=== PATIENT | female | born 1965 | race African-American/Black ===

== ENCOUNTER 2023-04-04 14:12 | Outpatient (OUT) | payer MEDICARE, SELFPAY ==
--- NOTE | 2023-04-04 | XR_ITS ---
The [address] [address] Patient Name: SIMONA DE SANTIAGO MRN: [id number] date: 1965 Sex: F Assigned Patient Location: Current Patient Location: Accession/Order Number: [id number] Exam Date: 04/04/2023 14:28 Report Date: 04/05/2023 07:25 At the request of: TONE CARABALLO Procedure: XR foot JANINA min 3V EXAMINATION: XR foot JANINA min 3V, XR ankle JANINA min 3V HISTORY: BILATERAL FOOT PAIN COMPARISON: No relevant comparison available. FINDINGS: RIGHT FINDINGS: BONES: No significant arthropathy or acute abnormality. SOFT TISSUES: No visible soft tissue swelling. OTHER: Negative. LEFT FINDINGS: BONES: Small triangular-shaped protrusion/cortical thickening/periosteal reaction along lateral margin of middistal tibial diaphysis. SOFT TISSUES: Small ossification within the soft tissues adjacent to the cortical irregularity the distal tibia; likely heterotopic bone formation from remote injury. OTHER: Negative. XR/XR foot JANINA min 3V IMPRESSION: RIGHT CONCLUSION: 1. 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 No acute bone abnormality or bone lesion. LEFT CONCLUSION: 1. Nonspecific focal area of cortical thickening/irregularity involving the middistal tibial diaphysis. Adjacent soft tissue calcification suggest the combination may be sequela of remote injury, however, a neoplastic process involving the distal tibia needs to be excluded. Consider follow-up x-ray in 3-6 months to document stability. Alternatively, MRI of this area could be performed to evaluate for soft tissue component. 2. Mild degenerative changes of the foot and ankle. No acute findings. Electronically authenticated by: JANET THORPE Date: 04/05/2023 07:25
--- NOTE | 2023-04-04 | XR_ITS ---
The [address] [address] Patient Name: SIMONA DE SANTIAGO MRN: [id number] date: 1965 Sex: F Assigned Patient Location: Current Patient Location: Accession/Order Number: [id number] Exam Date: 04/04/2023 14:28 Report Date: 04/05/2023 07:25 At the request of: TONE CARABALLO Procedure: XR ankle JANINA min 3V EXAMINATION: XR foot JANINA min 3V, XR ankle JANINA min 3V HISTORY: BILATERAL FOOT PAIN COMPARISON: No relevant comparison available. FINDINGS: RIGHT FINDINGS: BONES: No significant arthropathy or acute abnormality. SOFT TISSUES: No visible soft tissue swelling. OTHER: Negative. LEFT FINDINGS: BONES: Small triangular-shaped protrusion/cortical thickening/periosteal reaction along lateral margin of middistal tibial diaphysis. SOFT TISSUES: Small ossification within the soft tissues adjacent to the cortical irregularity the distal tibia; likely heterotopic bone formation from remote injury. OTHER: Negative. XR/XR ankle JANINA min 3V IMPRESSION: RIGHT CONCLUSION: 1. 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 No acute bone abnormality or bone lesion. LEFT CONCLUSION: 1. Nonspecific focal area of cortical thickening/irregularity involving the middistal tibial diaphysis. Adjacent soft tissue calcification suggest the combination may be sequela of remote injury, however, a neoplastic process involving the distal tibia needs to be excluded. Consider follow-up x-ray in 3-6 months to document stability. Alternatively, MRI of this area could be performed to evaluate for soft tissue component. 2. Mild degenerative changes of the foot and ankle. No acute findings. Electronically authenticated by: JANET THORPE Date: 04/05/2023 07:25
== END 2023-04-04 14:13 | disposition home or self-care (01) ==
PROVIDERS: Visit Provider Podiatrist Foot & Ankle Surgery
DX: M25.571 Pain in right ankle and joints of right foot (principal); M25.572 Pain in left ankle and joints of left foot; M79.671 Pain in right foot; M79.672 Pain in left foot; M19.071 Primary osteoarthritis, right ankle and foot
CPT/HCPCS: 73610; 73630

== ENCOUNTER 2023-06-13 08:41 | Outpatient (OUT) | payer MEDICARE, MEDICAID, SELFPAY ==
--- NOTE | 2023-06-13 08:55 | ECG_ITS ---
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
--- OUTSIDE RECORDS SUMMARY | 2023-06-13 09:04 | XMS_ITS | CCD ---
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 Care Hydro Sprayer Operator Name Role Phone Virgilio Carrera Unavailable Jaxson ([facility]), ADRIANNE Pizano Attending Provider [phone] Plank, DO Maged Primary Care Provider Nicholas Luu Unavailable MD Nicholas Luu Attending Provider [phone] Cory, DO Maged Primary Care Provider Cory, DO Maged Primary Care Provider MD Nicholas Luu Attending Provider Tutheresa, DO Saul Herrera Emergency Provider [phone] Plank, DO Maged Primary Care Provider [phone] MD Zeferino Allen Attending Provider [phone] Jaxson ([facility]), ADRIANNE Pizano Attending Provider Cory, DO Maged Primary Care Provider [phone] MD Nicholas Luu Attending Provider AVRIL RENDON Attending Unavailable Plank, Maged Primary Care Unavailable Saul Esparza Attending Unavailable Saul Esparza Admitting Unavailable Nicholas Luu Attending Unavaila ble Nicholas Luu Admitting Unavaila ble Plank, Maged Primary Care Unavailable Plank, Maged Primary Care Unavailable Antwan Delacruz Attending Unavailable Antwan Delacruz Admitting Unavailable Plank, Maged Primary Care Unavailable Rice ([facility]), Tamika Pizano Attending Unavailabl e Rice ([facility]), Tamika Pizano Admitting Unavailabl e Plank, Maged Primary Care Unavailable Antwan Delacruz Attending Unavailable Antwan Delacruz Admitting Unavailable Maged Ray Primary Care Unavailable Asaad, Imad Attending Unavailable Asacait Imad Admitting Unavailable Allergies Allergy Classification Reported Allergen(s) Allergy Type Date of Onset Reaction(s) Facility (8 sources) cyclobenzaprine Drug Allergy 3 [facility] (8 sources) Naproxen Drug Allergy 3 [facility] (4 sources) pineapple; Translations: [pineapple] Allergy to substance 3 Anaphylaxis [facility] (1 source) cyclobenzaprine Drug Allergy 3 [facility]ository (1 source) Naproxen Drug Allergy 3 [facility] Medications Current Medications Medication Drug Class(es) Dates Sig (Normalized) Sig (Original) [id number] 200 actuat albuterol 0.09 mg/actuat metered dose inhaler (4 sources) beta2-Adrenergic Agonist take 1 puff(s) by inhalation every four hours as needed Proventil HFA 108 (90 Base) MCG/ACT 1 puff as needed Inhalation every 4 hrs for 30 day(s) Active atorvastatin 40 mg oral tablet (8 sources) HMG-CoA Reductase Inhibitor Start: 08-20-2022 take 40 mg by mouth once daily Atorvastatin Active 40 MG PO Daily August 20, 2022 12:00am 120 actuat budesonide 0.08 mg/actuat / formoterol fumarate 0.0045 mg/actuat metered dose inhaler (4 sources) Corticosteroid, beta2-Adrenergic Agonist take 2 puff(s) by inhalation once daily Symbicort 80-4.5 MCG/ACT 2 puffs Inhalation Once a day for 30 day(s) Active 0.5 ML dulaglutide 9 MG/ML Auto-Injector [Trulicity] (4 sources) GLP-1 Receptor Agonist inject 4.5 mg by subcutaneous injection every week Trulicity 4.5 MG/0.5ML 4.5 mg Subcutaneous weekly for 30 day(s) Active Dulaglutide (Trulicity) 4.5 mg/0.5 mL Pen Injector (4 sources) Start: 08-20-2022 Dulaglutide (Trulicity) 4.5 mg/0.5 mL Pen Injector Active 4.5 MG SUBCUT every week August 20, 2022 12:00am Incruse Ellipta 62.5 MCG/INH (1 source) take 1 puff(s) by inhalation once daily Incruse Ellipta 62.5 MCG/INH 1 puff Inhalation Once a day for 30 day(s) Active Insulin Degludec (Tresiba Flextouch U-100) 100 unit/mL (3 mL) Insulin Pen (4 sources) Start: 08-20-2022 Insulin Degludec (Tresiba Flextouch U-100) 100 unit/mL (3 mL) Insulin Pen Active 50 UNIT SUBCUT Daily at bedtime August 20, 2022 12:00am losartan potassium 100 mg oral tablet (8 sources) Angiotensin 2 Receptor Darshan Start: 08-20-2022 take 100 mg by mouth once daily Losartan Active 100 MG PO Daily August 20, 2022 12:00am metFORMIN hydrochloride 1000 mg oral tablet (4 sources) Biguanide Start: 08-20-2022 take 1000 mg by mouth twice daily Metformin Active 1000 MG PO Twice daily August 20, 2022 12:00am polyethylene glycol 3350 [id number] mg / potassium chloride 2970 mg / sodium bicarbonate 6740 mg / sodium chloride 5860 mg / sodium sulfate 19693 mg powder for oral solution (1 source) Osmotic Laxative Start: 09-06-2022 take 236 g by mouth once daily Golytely 236 GM as directed Orally once daily for 1 days Aug, Active Vitamin (4 sources) Vitamin Active Umeclidinium (6 sources) Anticholinergic Start: 10-10-2022 take 62.5 ug by inhalation once daily Umeclidinium (Incruse Ellipta) 62.5 mcg/actuation Blister With Device Active 1 INH INHALATION Daily October 10, 2022 12:00am take 1 puff(s) by inhalation onc e daily Incruse Ellipta 62.5 MCG/INH 1 puff Inhalation Once a day for 30 day(s) Active Completed/Discontinued Medications Medication Drug Class(es) Dates Sig (Normalized) Sig (Original) ibuprofen 800 mg oral tablet (4 sources) Nonsteroidal Anti-inflammatory Drug Start: 08-20-2022 End: 10-10-2022 take 800 mg by mouth three times daily Ibuprofen Discontinued 800 MG PO Three times daily August 20, 2022 12:00am October 10, 2022 8:31am Problems Problem Classification Problem Date Documented Date Episodic/Chronic Asthma (5 sources) Uncomplicated moderate persistent asthma; Translations: [Moderate persistent asthma, uncomplicated] Onset: 08-12-2021 Resolved: 08-12-2021 Chronic Diabetes mellitus without complication (5 sources) Type 2 diabetes mellitus without complication; Translations: [Type 2 diabetes mellitus without complications] Onset: 08-12-2021 Resolved: 08-12-2021 Chronic Disorders of lipid metabolism (6 sources) Mixed hyperlipidemia; Translations: [Mixed hyperlipidemia] Onset: 08-12-2021 Resolved: 09-06-2021 Chronic Essential hypertension (6 sources) Essential hypertension; Translations: [Essential (primary) hypertension] Onset: 08-12-2021 Resolved: 09-06-2021 Chronic Other connective tissue disease (1 source) Pain in right foot; Translations: [Pain in right foot] Onset: 06-12-2023 Episodic Residual codes; unclassified (2 sources) Obstructive sleep apnea syndrome; Translations: [Obstructive sleep apnea (adult) (pediatric)] Chronic Residual codes; unclassified (2 sources) Obstructive sleep apnea (adult) (pediatric) Chronic Residual codes; unclassified (1 source) Obstructive sleep apnea (adult)(pediatric); Translations: [Obstructive sleep apnea (adult) (pediatric)] Onset: 12-07-2022 Chronic Sprains and strains (4 sources) Sprain of knee; Translations: [Sprain of unspecified site of unspecified knee, initial encounter] 08-20-2022 Episodic Unclassified (1 source) Strain of muscle(s) and tendon(s) of peroneal muscle group at lower leg level, right leg, initial encounter; Translations: [Strain of muscle(s) and tendon(s) of peroneal muscle group at lower leg level, right leg, initial encounter] Onset: 04-17-2023 Unclassified (1 source) Encounter for screening mammogram for malignant neoplasm of breast; Translations: [Encounter for screening mammogram for malignant neoplasm of breast] Onset: 10-21-2022 Unclassified (1 source) Encounter for screening for malignant neoplasm of colon; Translations: [Encounter for screening for malignant neoplasm of colon] Onset: 10-10-2022 Unclassified (1 source) Pain in right knee; Translations: [Pain in right knee] Onset: 08-20-2022 Results Test Name Value Interpretation Reference Range Facility XR pre/post mri xrayon 04-16 XR pre/post mri xray [facility] [address] [place] [address] MRI Report Signed Patient: Lisa Leblanc MR#: [id number] : 1965 Acct:[id number] Age/Sex: 58 / F ADM Date: 04/17/23 Loc: MR Room: Type: REG CLI Attending Dr: Antwan Delacruz DPM, MS Copies to: Antwan Delacruz DPM, MS Ordering Provider: Antwan Delacruz DPM, MS Date of Service: 04/17/23 MR/MR ankle RT wo con: PERONEAL TEAR, PTTD ([id number]) XR/XR pre/post mri xray: PERONEAL TEAR, PTTD MRI Right Ankle without contrast TECHNIQUE: Multiplanar T1 and T2-weighted imaging of the LEFT ankle obtained without contrast. COMPARISON: None HISTORY: Twisted RIGHT ankle. Generalized RIGHT ankle pain. Difficulty with weightbearing weight. CLINICAL QUESTION: FINDINGS: SYNDESMOSIS: Adequate alignment of the distal tibia and fibula THE BONE MARROW: Normal fatty marrow without marrow infiltrative changes. A minimal cystic change of the cuboid identified. FRACTURE: No fracture identified. LATERAL COLLATERAL LIGAMENT COMPLEX: Intact anterior talofibular ligament. Intact calcaneofibular ligament. Intact posterior talofibular ligament. ANTEROLATERAL COMPARTMENT: No anterolateral impingement findings. PERONEAL TENDONS: Normal peroneal brevis tendon adjacent to the bone. No longitudinal split tear. Normal appearance of the peroneal longus tendon. Normal low signal tendon. Intact superior peroneal retinaculum with normal alignment of the peroneal brevis tendon. Normal appearance of the peroneal tendons behind the retromalleolar grove of the lateral malleolus. Small amount of fluid surrounds the peroneal tendons at the level of the retromalleolar groove.. No hypertrophy of the peroneal tubercle of the lateral calcaneus BIFURCATE LIGAMENT: Calcaneocuboid and calcaneonavicular ligaments of the bifurcate ligament are intact. The anterior process of the calcaneus is intact without bone marrow edematous changes. Intact the midtarsal joint. DELTOID LIGAMENT: The superficial and deep components of the medial collateral deltoid ligaments are intact. SPRING LIGAMENT: The spring ligament normally intersects the posterior tibial tendon in the talar head with coronal view no findings of tear or thickening. Specifically the superior medial segment is preserved. POSTERIOR TIBIAL TENDON: Normal orientation the posterior tibial tendon behind of the medial malleolus inserting into the navicular bone. Small amount of normal fluid is seen within the tendon sheath which terminates 1-2 cm proximal to the navicular insertion. No distal paratendinitis of the tendon identified. Unremarkable heterogeneous signal intensity of the distal tendon identified. SINUS TARSI: Normal fat-containing sinus tarsi identified without evidence of posterior tibial tendon dysfunction, talocalcaneal or fibulocalcaneal impingement identified. FLEXOR DIGITORUM LONGUS: Intact. FLEXOR HALLUCIS LONGUS: Intact . Fluid surrounding the flexor hallucis longus is likely a normal finding suggesting communication of the joint. ACHILLES TENDON: Normal homogeneous low signal. Normal thickness with slight concave anterior surface present. No peritendinous edema. No retrocalcaneal bursitis. No Remedios deformity. Infiltration No tear of the calcaneal insertion or mid substance. Normal Albert's fat-pad. No Achilles tendon insertion enthesophyte. ANTERIOR TIBIAL TENDON:Anterior tibial tendon intact. No surrounding abnormal tendon sheath fluid. PLANTAR FASCIA: 3 fascicles of the plantar fascia are intact. No calcaneal spurring. No reactive bone marrow edema. No adjacent soft tissue edema. MR/MR ankle RT wo con IMPRESSION: lateral soft tissue edema. Intact Lateral collateral ligaments. Intact peroneal tendons with mild surrounding fluid suggesting mild tenosynovitis region of the retromalleolar groove suggesting tenosynovitis. Intact syndesmosis. Intact ankle mortise. Intact talar dome. 2 views of the RIGHT ankle Inferior calcaneal spurring. Preserved ankle mortise. Adequate alignment. Intact bony structures. Lateral soft tissue swelling. IMPRESSION: No acute fracture. Impression dictated by: Silver Montoya M.D.04/17/2023 12:21 PM Dictation Location: [place] [address] Transcribed By: [facility] 04/17/23 1221 Dictated By: Silver Montoya DO 04/17/23 1148 Signed By: 04/17/23 1221 Normal [facility] MM screening mammo BI w/CADo n 10-21-2022 MM screening mammo BI w/CAD [facility] [address] [place] [address] Mammography Report Signed Patient: Lisa Leblanc MR#: [id number] : 1965 Acct:[id number] Age/Sex: 57 / F ADM Date: 10/21/22 Loc: OR Room: Type: [facility] Attending Dr: Tamika Puri ([facility]) ADRIANNE Copies to: Tamika Puri APRN [facility] Ray DO Ordering Provider: Tamika Puri APRN, WHCNP Date of Service: 10/21/22 MM/MM screening mammo BI w/CAD: SCREENING CLINICAL DATA: Screening for malignancy. BILATERAL SCREENING MAMMOGRAMS - FULL FIELD DIGITAL WITH TOMOSYNTHESIS AND CAD Tomosynthesis craniocaudal and mediolateral oblique views of both breasts were obtained using low- dose digital technique. Comparison is made to the prior study from September 14, 2021. This examination was reviewed with the aid of CAD. There are minimal residual scattered fibroglandular densities. Benign calcifications and stable nodularity are visualized. There are no developing masses, typically malignant calcifications or architectural distortion. There has been no significant interval change. MM/MM screening mammo BI w/CAD IMPRESSION: NO MAMMOGRAPHIC EVIDENCE OF MALIGNANCY. ROUTINE FOLLOW-UP IS RECOMMENDED IN ONE YEAR. RESULT CODE: 2 Benign Findings(s) DENSITY CODE: 1 (<25% glandular) FOLLOW UP: 1YR The false-negative rate of mammography is approximately 10-percent. Management of a palpable abnormality must be based on clinical grounds. Patient was entered into a reminder system with a target due date for the next mammogram. Impression dictated by: Wendy Benavides M.D.10/21/2022 2:32 PM Dictation Location: [facility] Transcribed By: RHINA 10/21/22 1432 Dictated By: Wendy Benavides MD 10/21/22 142 Signed By: 10/21/22 143 Normal [facility] Glucose Glucometer (BldC) [M ass/Vol]Ordered By: Zeferino Allen on 10-10-2022 Glucose [Mass/Vol] 114 mg/dL [facility] Comment on above: Random Glucose Refer ence Range is dependent on time and content of last meal. Glucose of more than 200 mg/dL in a nonstressed, ambulatory subject supports the diagnosis of Diabetes Mellitus. Glucose Poct Glucometerson 0 10-10-2022 Commemt1 Glu2: Cleaned Meter Normal [facility] Comment on above: Result Comment: PERF ORMED BY: [place] [address] PATHOLOGIST CITY MANAGER AMIE BENJAMIN M.D. Performed By: #### G LULS #### Point of Care testing , Glucose [Mass/Vol] 114 mg/dL Normal [facility] Comment on above: Result Comment: [place] om Glucose Reference Range is dependent on time and content of last meal. Glucose of more than 200 mg/dL in a nonstressed, ambulatory subject supports the diagnosis of Diabetes Mellitus. Performed By: #### G LULS #### Point of Care testing , No Panel InformationOrdered By: Zeferino Allen on 10-10-2022 Bedside Glucose Comment Glu2: cleaned meter [facility] XR knee RT 4V*on 08-21-2022 XR knee RT 4V* [facility] [address] [place], [place] [id number] XRay Report Signed Patient: Lisa Leblanc MR#: [id number] : 1965 Acct:[id number] Age/Sex: 57 / F ADM Date: 08/20/22 Loc: ER Room: Type: [facility] ER Attending Dr: Copies to: Saul Esparza DO Ordering Provider: Saul Esparza DO Date of Service: 08/20/22 XR/XR knee RT 4V*: fall, knee pain XR knee RT 4V* 08/20/2022 9:47 PM SIGNS AND SYMPTOMS: Generalized right knee pain after fall PROTOCOL: Frontal, lateral, and oblique radiographs of the right knee COMPARISON: None FINDINGS: 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 There is no evidence of fracture or hardware complication. There is anterior soft tissue swelling. There is no joint effusion. XR/XR knee RT 4V* IMPRESSION: 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 There is no evidence of fracture or hardware complication. There is mild soft tissue swelling anteriorly. Impression dictated by: Hua Michaud M.D.08/21/2022 10:52 AM Dictation Location: [place] [address] Transcribed By: [facility] 08/21/22 1052 Dictated By: Hua Michaud II, MD 08/21/22 1051 Signed By: 08/21/22 1052 Normal [facility] Vital Signs Date Time Vital Sign Value Performing Clinician Faci lity 12-07-2022 13:00-0400 Body height Nicholas Luu Other [facility] Other 12-07-2022 13:00-0400 Body mass index (BMI) [Ratio] 46.76 kg/m2 Nicholas Luu Other [facility] Other 12-07-2022 13:00-0400 Body weight 127.46 kg Nicholas Luu Other [facility] Other 12-07-2022 13:00-0400 Diastolic blood pressure 87 mm[Hg] Nicholas Luu Other [facility] Other 12-07-2022 13:00-0400 SaO2% (BldA) [Mass fraction] 97 % Nicholas Luu Other [facility] Other 12-07-2022 13:00-0400 Systolic blood pressure 137 mm[Hg] Nicholas Luu Other [facility] Other 10-10-2022 10:40-0400 Diastolic blood pressure 66 mm[Hg] DO Saul Esparza Work Phone: [facility] 10-10-2022 10:40-0400 Heart rate 60 /min DO Saul Tupa Work Phone: [facility] 10-10-2022 10:40-0400 Respiratory rate 16 /min DO Saul Tupa Work Phone: [facility] 10-10-2022 10:40-0400 SaO2% (BldA) [Mass fraction] 96 % DO Saul Tupa Work Phone: [facility] 10-10-2022 10:40-0400 Systolic blood pressure 138 mm[Hg] DO Saul Tupa Work Phone: [facility] 10-10-2022 08:18-0400 Body height 165.1 cm DO Saul Tupa Work Phone: [facility] 10-10-2022 08:18-0400 Body temperature 97.6 [degF] DO Saul Tupa Work Phone: [facility] 10-10-2022 08:18-0400 Body weight 124.73 kg DO Saul Tupa Work Phone: [facility] 08-21-2022 00:11-0400 Diastolic blood pressure 82 mm[Hg] DO Saul Tupa Work Phone: [facility] 08-21-2022 00:11-0400 Heart rate 88 /min DO Saul Tupa Work Phone: [facility] 08-21-2022 00:11-0400 Respiratory rate 20 /min DO Saul Tupa Work Phone: [facility] 08-21-2022 00:11-0400 SaO2% (BldA) [Mass fraction] 99 % DO Saul Tupa Work Phone: [facility] 08-21-2022 00:11-0400 Systolic blood pressure 147 mm[Hg] DO Saul Tupa Work Phone: [facility] 08-20-2022 21:43-0400 Body height 165.1 cm DO Saul Esparza Work Phone: [facility] 08-20-2022 21:43-0400 Body temperature 98.6 [degF] DO Saul Esparza Work Phone: [facility] 08-20-2022 21:43-0400 Body weight 131.6 kg DO Saul Esparza Work Phone: [facility] 11-19-2021 11:30-0400 Body height Nicholas Luu Other [facility] Other 11-19-2021 11:30-0400 Body mass index (BMI) [Ratio] 45.26 kg/m2 Nicholas Smalldano Other [facility] Other 11-19-2021 11:30-0400 Body temperature 96.2 [degF] Nicholas Smalldano Other [facility] Other 11-19-2021 11:30-0400 Body weight 123.38 kg Nicholas Smalldano Other [facility] Other 11-19-2021 11:30-0400 Diastolic blood pressure 82 mm[Hg] Nicholas Smalldano Other [facility] Other 11-19-2021 11:30-0400 SaO2% (BldA) [Mass fraction] 99 % Christjasper Smalldano Other [facility] Other 11-19-2021 11:30-0400 Systolic blood pressure 123 mm[Hg] Rodneyer Bell Other [facility] Other 08-12-2021 11:45-0400 Body height Virgilio Deleonmer Other [facility] Other 08-12-2021 11:45-0400 Body mass index (BMI) [Ratio] 46.06 kg/m2 Virgilio Debi Other [facility] Other 08-12-2021 11:45-0400 Body weight 125.56 kg Virgilio Debi Other [facility] Other 08-12-2021 11:45-0400 Diastolic blood pressure 82 mm[Hg] Virgilio Carrera Other [facility] Other 08-12-2021 11:45-0400 Respiratory rate 18 /min Virgilio Debi Other [facility] Other 08-12-2021 11:45-0400 SaO2% (BldA) [Mass fraction] 98 % Virgilio Debi Other [facility] Other 08-12-2021 11:45-0400 Systolic blood pressure 122 mm[Hg] Virgilio Debi Other [facility] Other Encounters Encounter Date Encounter Type Care Provider Facility Start: 06-12-2023 ambulatory Maged Ray Facility: [facility] Start: 04-17-2023 End: 04-17-2023 ambulatory Maged Plank Facility:[facility] Start: 01-24-2023 End: 01-24-2023 ambulatory AVRIL RENDON Not Available Start: 12-07-2022 End: 12-07-2022 ambulatory Nicholas Luu Facility:[facility] Start: 12-07-2022 Office outpatient visit 10 minutes Nicholas Luu [facility] Start: 12-07-2022 End: 12-07-2022 ambulatory DO Maged Ray Work Phone: [facility] Work Phone: Start: 12-07-2022 End: 12-07-2022 Patient encounter procedure DO Maged Ray Work Phone: [facility] Work Phone: Start: 10-21-2022 End: 10-21-2022 ambulatory Maged Ray Facility:[facility] Start: 10-21-2022 End: 10-21-2022 ambulatory DO Saul Esparza Work Phone: [facility] Work Phone: Start: 10-21-2022 End: 10-21-2022 Patient encounter procedure DO Saul Esparza Work Phone: [facility] Work Phone: Start: 10-10-2022 End: 10-10-2022 ambulatory Maged Ray Facility:[facility] Start: 10-10-2022 End: 10-10-2022 Admission to same day surgery center DO Saul Esparza Work Phone: [facility] Work Phone: Start: 10-10-2022 End: 10-10-2022 ambulatory DO Saul Esparza Work Phone: [facility] Work Phone: Start: 08-20-2022 End: 08-21-2022 Emergency department patient visit Maged Ray Facility:[facility] Start: 08-20-2022 End: 08-21-2022 Emergency department patient visit DO Sual Esparza Work Phone: [facility]Emergency [facility] Work Phone: Start: 03-16-2022 End: 03-16-2022 ambulatory DO Maged Ray Work Phone: [facility] Work Phone: Start: 03-16-2022 End: 03-16-2022 Patient encounter procedure DO Maged Ray Work Phone: [facility] Work Phone: Start: 01-12-2022 End: 01-12-2022 ambulatory DO Maged Ray Work Phone: [facility] Work Phone: Start: 01-12-2022 End: 01-12-2022 Patient encounter procedure DO Maged Ray Work Phone: [facility] Start: 11-19-2021 End: 11-19-2021 ambulatory Nicholas Luu Other [facility] Other Start: 11-19-2021 Office outpatient ne w 30 minutes Nicholas Luu [facility] Start: 11-19-2021 End: 11-19-2021 Patient encounter procedure DO Maged Ray Work Phone: [facility] Start: 09-14-2021 End: 09-14-2021 Patient encounter procedure ADRIANNE Puri ([facility]) [facility] Start: 09-06-2021 End: 09-06-2021 ambulatory Virgilio Carrera Other [facility] Other Start: 09-06-2021 Telephone encounter Virgilio [facility] Start: 08-12-2021 End: 08-12-2021 ambulatory Virgilio Carrera Other [facility] Other Start: 08-12-2021 Office outpatient ne w 30 minutes Virgilio Carrera [facility] Procedures Date Procedure Procedure Detail Performing Clinician Start: 10-21-2022 Screening mammograph y of bilateral breasts DO Saul Esparza Work Phone: Start: 10-10-2022 Screening colonoscopy D O Saul Gardnertheresa Work Phone: Start: 08-20-2022 X-ray of right knee DO Saul Esparza Work Phone: Start: 09-14-2021 Screening mammograph y of bilateral breasts ADRIANNE Puri ([facility]) Work Phone: Plan of Treatment Date Care Activity Detail Author Start: 10-10-2022 [facility] Start: 08-20-2022 X-ray of right knee XR knee RT 4V* F [facility] Start: 08-20-2022 XR Knee - right 4 Views [facility] Patient Education [facility] Work Phone: Patient referral [facility] Work Phone: Payers Date Payer Category Payer Unknown [id number] 2022 Medicare [id number] 2.1 [id number] 2022 Self-pay [id number] 2021 Medicaid [id number] 1965 Unknown [id number] Medicare [id number] b Medicare [place] [employer] [id number] b Unknown [id number] Unknown [id number] Unknown [id number] Unknown [id number] Unknown [id number] Unknown [id number] Social History Date Type Detail Facility Sex Assigned At [place] Other Start: 1965 Sex Assigned At Female F [facility] Start: 08-20-2022 Tobacco smoking stat us NHIS Never smoked tobacco (finding) [facility] Goals Date Patient Goal Desired Activity /State Evaluation note 12-07-2022 Note Date & Type Note Facility 12-07-2022 Evaluation note Encounter Date Diagnosis Assessment Notes Nov, Obstructive sleep apnea (ICD-10 - G47.33) [facility] Other Procedure note 10-10-2022 Note Date & Type Note Facility 10-10-2022 Procedure note [facility] Evaluation note 11-19-2021 Note Date & Type Note Facility 11-19-2021 Evaluation note Encounter Date Diagnosis Assessment Notes Nov, Obstructive sleep apnea (ICD-10 - G47.33) [facility] Other Evaluation note 09-06-2021 Note Date & Type Note Facility 09-06-2021 Evaluation note Encounter Date Diagnosis Assessment Notes Aug, Mixed hyperlipidemia (ICD-10 - E78.2) Aug, Primary hypertension (ICD-10 - I10) [facility] Other Evaluation note 08-12-2021 Note Date & Type Note Facility 08-12-2021 Evaluation note Encounter Date Diagnosis Assessment Notes Jul, Type 2 diabetes mellitus without complication, without long-term current use of insulin (ICD-10 - E11.9) Patient has diabetes of that at least by her admission was well controlled in February. I will continue her with Trulicity at 4.5 mg weekly. I will not order any lab work at this time given the fact it is unclear whether she has insurance coverage to pay for this and will be difficult for her to pay [id number]. 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 services and patient has an appointment within the next week to see them and will defer to them for her work-up. Jul, Primary hypertension (ICD-10 - I10) Continue losartan 100 mg daily as this is well controlling her blood pressure. No changes needed. Jul, Mixed hyperlipidemia (ICD-10 - E78.2) Continue atorvastatin 40 mg daily. Jul, Moderate persistent asthma without complication (ICD-10 - J45.40) Continue current inhaler therapy with Incruse Ellipta, Proventil, and Symbicort. These are controlling her asthma well for her admisson [facility] Other History general Narrative - Reported 03-06-2021 Note Date & Type Note Facility 03-06-2021 History general N arrative - Reported Type Surgical History knee surgery-bilateral Surgical History C section Surgical History finger surgery 03/06 Hospitalization History see above [facility] Other Evaluation note Note Date & Type Note Facility Evaluation note No assessment information availa [facility] Work Phone: History and physical note Note Date & Type Note Facility History and physical note Note Date/Time October 10, 2022 9:46am [facility] [address] [place] [address] Gastroenterology H&P Signed Patient: Lisa Leblanc MR#: [id number] : 1965 Acct:[id number] Age/Sex: 57 / F Adm Date: 3 Loc: Room: Type: [facility] Attending Dr: Zeferino Allen MD Copies to: MD Maged Walker DO~ Date of Service: 10/10/2022 HISTORY & PHYSICAL: Patient's history with special attention to the cardiovascular, pulmonary systems and the current problem was reviewed with the patient immediately prior to the procedure. Present medications and doses reviewed in the EMR. Allergies and pertinent laboratory tests were also reviewedat this time in the EMR. The physical examination, as below, was then performed. Indication, assessment and HPI: 57-year-old female here for screening colonoscopy Family history of GI malignancy? No PHYSICAL EXAMINATION Mouth and Pharynx : Moist mucus membranes, normal dentition Cardiac: Regular rate, regular rhythm Pulmonary: Clear to auscultation bilaterally, no wheezing Neurological: Alert and oriented x3, no focal deficits noted Abdomen: Abdomen soft, non-tender REVIEW OF SYSTEMS Constitutional: Denies malaise, fevers Cardiovascular: Denies chest pain, palpitations Respiratory: Denies shortness of breath, wheezing Gastrointestinal: Per HPI Genitourinary: Denies dysuria, polyuria Musculoskeletal: Denies joint swelling, joint stiffness Neurological: Denies numbness, tingling Integumentary: Denies rashes, skin lesions Endocrine: Denies fatigue, weight loss Written informed consent obtained from the patient. Risks (including but not limited to perforation, infection, bloating, bleeding, need for emergent surgeryand loss of life), benefits and alternatives explained and questions answered. The patient verbalized understanding. Based on history patient is an appropriate candidate for the procedure. Zeferino Allen M.D. Documented By: Zeferino Allen MD 10/10/22 0945 Signed By: <Electronically signed by Zeferino Allen MD> 10/10/22 0946 [facility] Work Phone: History general Narrative - Reported Note Date & Type Note Facility History general Narrative - Reported Type Surgical History knee surgery-bilateral Surgical History C section Surgical History finger surgery 03/06 Hospitalization History see above [facility] Other Hospital Discharge instructions Note Date & Type Note Facility Hospital Discharge instructions Additional Instructions DISCHARGE INSTRUCTIONS FOR COLONOSCOPY WHAT TO EXPECT: - You may feel full, gassy or cramping after your procedure. In some cases, this may be from a few hours to a day. Walking may help relieve the discomfort. - You should begin to recover from anesthesia within 1 hour of the procedure, however may feel groggy for the next 24 hours. DO's AND DON'Ts: - Call your doctor right away if you have a hard abdomen, severe pain, are passing lots of bright red blood or clots. - Call your doctor if you develop any rashes, hives or difficulty breathing. - Let your doctor know if you have not had a bowel movement by 3 days after your procedure. - If you take 81 mg aspirin for your heart it is safe to resume this medication. - If you take other blood thinner medications your doctor will instruct you when these can safely be resumed. - Do NOT drive for 24 hours. - Do NOT operate machinery such as power tools, lawn mowers, snow blowers, sewing machines, etc. for 24 hours. - Avoid alcoholic beverages and drugs for allergies, nerves, or sleep. - Do NOT stay alone. Do NOT leave your child unattended. - Do NOT make important personal or business decisions or sign any legal documents. - Eat solid foods and drink liquids in smaller amounts than usual until normal appetite returns. If you should experience an upset stomach, liquids high in sugar content (soda, Augusto-Aid, non-acid juices) are recommended. - You can resume normal activities tomorrow. FOLLOW UP & RECOMMENDATIONS: -Notify the doctor if you have any problems. -Repeat colonoscopy in 10 years. -Follow up with PCP. -Office number [phone]. [facility] Work Phone: Chief Complaint and Reason for Visit Chief Complaint Screening Chief Complaint g47.30 e66.9 i10 magdalena betes Diagnostic sleep study Chief Complaint Diagnostic sleep marleny dy titration Chief Complaint swollen leg from fal l Chief Complaint swollen leg from fal l Screening Chief Complaint swollen leg from fal l Screening Screening Chief Complaint Screening Screening no show 31-90 in may Advance Directives No Advanced Directives Records Found Advance Directive Response Recorded Date/ Time Advance Directives No September 13 3:53pm Advance Directive Response Recorded Date/ Time Advance Directives No November 17, 2021 8:14am Advance Directive Response Recorded Date/ Time Advance Directives No November 17, 2021 9:14am Summary Purpose Family History No Family History Records Found Additional Source Comments REASON FOR VISIT (unrecogniz ed section and content) EST [facility] Care Teams (unrecognized sec tion and content) Team Status: Inactive Member Role Status Dates Tamika Puri ([facility]) , SUBSTATION OPERATOR Attending Provider Active Maged Ray , DO Primary Care Provider Active Team Status: Active Member Role Status Dates Maged Ray , DO Primary Care Provider Active Team Status: Inactive Member Role Status Dates Maged Ray , DO Primary Care Provider Active Nicholas Luu MD Attending Provider Active Team Status: Inactive Member Role Status Dates Nicholas Luu MD Attending Provider Active Maged Ray , DO Primary Care Provider Active Team Status: Inactive Member Role Status Dates Saul Esparza , DO Emergency Provider Active Maged Ray , DO Primary Care Provider Active Team Status: Inactive Member Role Status Dates Maged Ray , DO Primary Care Provider Active Zeferino Allen MD Attending Provider Active Team Status: Inactive Member Role Status Dates Maged Ray , DO Primary Care Provider Active Tamika Puri ([facility]) , SUBSTATION OPERATOR Attending Provider Active Goals (unrecognized section and content) Goals may be documented in a n alternate section INFORMATION SOURCE (unrecogn ized section and content) DATE CREATED AUTHOR 01/26/2023 [facility] DATE CREATED AUTHOR AUTHOR'S ORGANIZ ATION 06/12/2023 [facility] FOR RECORDS PERTAINING TO PATIENTS WHO ARE OR HAVE BEEN ENROLLED IN A CHEMICAL DEPENDENCY/SUBSTANCEABUSE PROGRAM, SOME INFORMATION MAY BE OMITTED. This clinical summary was aggregated from multiple sources. Caution should be exercised in using it in the provision of clinical care. This summary normalizes information from multiple sources, and as a consequence, information in this document may materially change the coding, format and clinical context of patient data. In addition, data may be omitted in some cases. CLINICAL DECISIONS SHOULD BE BASED ON THE PRIMARY CLINICAL RECORDS. [facility] [employer] provides no warranty or guarantee of the accuracy or completeness of information in this document.
--- NOTE | 2023-06-13 09:58 | PM.PRESUREVA ---
History of Present Illness History of Present Illness Chief complaint: other specified joint disorders right ankle, foot Narrative: Patient presents for preadmission testing. The patient reports bilateral foot and ankle pain and feels that her ankles are rolling out. She states the right side is worse than the left. She's had bilateral knees replaced in the past. 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 She takes meloxicam which only gives her minimal relief. Review of Systems ROS Narrative REVIEW OF SYSTEMS: Negative except as stated in HPI, ten or more systems reviewed. Constitutional: No fever , chills, weakness ENT: No sore throat or epistaxis Cardiovascular: Admits to chest pain and dyspnea on exertion particularly when pushing her cart at work Respiratory: No cough; chronic intermittent wheezing Gastrointestinal: No abdominal pain, constipation, or vomiting Genitourinary: No dysuria or hematuria Neurological: No numbness, tingling, weakness, or headache Psychiatric: No mood changes PFSH [facility] Medical History (Updated 06/13/23 @ 09:31 by Patsy Temple NP) Sleep apnea ?G47.30 - Sleep apnea, unspecified (ICD-10) Diarrhea ?R19.7 - Diarrhea, unspecified (ICD-10) Dyspnea on exertion ?R06.09 - Other forms of dyspnea (ICD-10) Gall stone ?K80.20 - Calculus of gallbladder without cholecystitis without obstruction (ICD-10) Legally blind ?H54.8 - Legal blindness, as defined in [place] (ICD-10) Foot pain ?M79.673 - Pain in unspecified foot (ICD-10) Posterior tibial tendinitis ?M76.829 - Posterior tibial tendinitis, unspecified leg (ICD-10) Other specified joint disorders, right ankle and foot ?M25.871 - Other specified joint disorders, right ankle and foot (ICD-10) Peroneal tendinitis ?M76.70 - Peroneal tendinitis, unspecified leg (ICD-10) Ankle instability ?M25.373 - Other instability, unspecified ankle (ICD-10) Arthritis ?M19.90 - Unspecified osteoarthritis, unspecified site (ICD-10) Asthma ?J45.909 - Unspecified asthma, uncomplicated (ICD-10) Diabetes ?E11.9 - Type 2 diabetes mellitus without complications (ICD-10) Surgical History (Updated 06/13/23 @ 09:31 by Patsy Temple NP) History of section ?Z98.891 - History of uterine scar from previous surgery (ICD-10) History of cholecystectomy ?Z90.49 - Acquired absence of other specified parts of digestive tract (ICD-10) History of arthroplasty of knee ?Z96.659 - Presence of unspecified artificial knee joint (ICD-10) History of arthroplasty of knee ?Z96.659 - Presence of unspecified artificial knee joint (ICD-10) History of hysterectomy ?Z90.710 - Acquired absence of both cervix and uterus (ICD-10) History of carpal tunnel release ?Z98.890 - Other specified postprocedural states (ICD-10) Family History (Updated 06/13/23 @ 09:57 by Patsy Temple NP) Other Family history of cancer Family history of diabetes mellitus Family history of heart disease Social History (Updated 06/13/23 @ 09:24 by Patsy Temple NP) Within the past year, how often did you have a drink containing alcohol: monthly or less Smoking status: Never smoker Non-prescribed substance use: denies use 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 Highest level of school completed/degree received: high school graduate Meds Home Medications and Allergies Home Medications ?Medication ?Instructions ?Recorded ?Confirmed ?Type albuterol sulfate 90 mcg/actuation 2 inh inhalation Q4H PRN shortness 06/13/23 06/13/23 History aerosol inhaler of breath or wheezing amlodipine 5 mg tablet 5 mg PO QPM 06/13/23 06/13/23 History atorvastatin 40 mg tablet 40 mg PO QPM 06/13/23 06/13/23 History blood-glucose meter (OneTouch 06/13/23 06/13/23 History Verio Reflect Meter) blood-glucose sensor (Dexcom G6 06/13/23 06/13/23 History Sensor device) blood-glucose transmitter (Dexcom 06/13/23 06/13/23 History G6 Transmitter device) budesonide-formoterol HFA 80 2 inh inhalation Q12H 06/13/23 06/13/23 History mcg-4.5 mcg/actuation aerosol inhaler insulin aspart U-100 100 unit/mL 1.5 unit continuous subcutaneous 06/13/23 06/13/23 History subcutaneous solution (Novolog infusion DAILY U-100 Insulin aspart) insulin degludec 200 unit/mL (3 50 unit subcut QPM 06/13/23 06/13/23 History mL) subcutaneous pen (Tresiba FlexTouch U-200 insulin) insulin pump cart,automated,BT 06/13/23 06/13/23 History (Omnipod 5 G6 Pods (Gen 5) subcutaneous cartridge) insulin pump cartridge,automated 06/13/23 06/13/23 History dose,BT with controller subcutaneous (Omnipod 5 G6 Intro Kit (Gen 5) subcutaneous cartridge with controller) losartan 100 mg tablet 100 mg PO QPM 06/13/23 06/13/23 History meloxicam 15 mg tablet 15 mg PO DAILY 06/13/23 06/13/23 History metformin 500 mg tablet,extended 500 mg PO DAILY 06/13/23 06/13/23 History release 24 hr Allergies Allergy/AdvReac Type Severity Reaction Status Date / Time cyclobenzaprine Allergy Verified 06/13/23 09:23 [From Flexeril] formaldehyde Allergy Verified 06/13/23 09:23 naproxen [From Naprosyn] Allergy Verified 06/13/23 09:23 nickel Allergy Verified 06/13/23 09:23 pineapple Allergy Verified 06/13/23 09:23 Exam Narrative Exam Narrative: Constitutional: Awake, alert, comfortable, well-appearing, nontoxic, interactive, vital signs as charted Head: Normocephalic, atraumatic Neck: Supple, normal appearance, normal range of motion, no meningeal signs, no lymphadenopathy Respiratory: No respiratory distress, breath sounds clear Cardiovascular: Regular rate and rhythm, strong and regular heart tones Musculoskeletal: Ambulates with a slow antalgic gait, CAM walking boot intact right lower extremity Skin: No rashes or induration, no lesions, only visible skin inspected Neuro: No neurological deficits, normal sensation Psychiatric: Oriented ?3, normal affect Assessment and Plan Assessment and Plan (1) Foot pain: (2) Posterior tibial tendinitis: (3) Other specified joint disorders, right ankle and foot: (4) Peroneal tendinitis: (5) Ankle instability: Plan Right ankle arthroscopy with stress examination under fluoroscopy, possible lateral ankle stabilization, peroneal tendon debridement versus repair scheduled with Dr. Delacruz 06/19/2023.
[2023-06-13 10:28] LABS: Anion Gap 10.4; BUN Creatinine Ratio 21.1; Calcium 9.9 mg/dL (8.5-10.1); Carbon Dioxide 29.5 mmol/L (21.0-32.0); Chloride 104 mmol/L (98-107); Estimated GFR (African America >60 (>=60); Estimated GFR (Non-African Ame >60 (>=60); Glucose 103 mg/dL (74-106); Potassium 3.9 mmol/L (3.5-5.1); Sodium 140 mmol/L (136-145)
== END 2023-06-13 08:42 | disposition home or self-care (01) ==
PROVIDERS: Visit Provider Podiatrist Foot & Ankle Surgery
DX: Z01.810 Encounter for preprocedural cardiovascular examination (principal); Z01.812 Encounter for preprocedural laboratory examination; Z01.818 Encounter for other preprocedural examination; M25.871 Other specified joint disorders, right ankle and foot; M25.371 Other instability, right ankle
CPT/HCPCS: 80048; 83036; 93005; G0463

== ENCOUNTER 2023-06-22 12:03 | Outpatient (OUT) | payer MEDICARE, MEDICAID, SELFPAY ==
--- NOTE | 2023-06-22 13:00 | CA_ITS ---
Patient Name: SIMONA DE SANTIAGO MR#: [id number] : 1965 Exam Date: 06/22/2023 Ordering Doctor: CHANTELLE PLUNKETT ECHOCARDIOGRAM REPORT PROCEDURE: CA ECHO DOPPLER COMPLETE INDICATIONS: Abnormal ECG, essential hypertension COMPARISON: None. DESCRIPTION: COMPLETE ECHOCARDIOGRAM Real-time transthoracic echocardiography with 2D, M-mode, spectral and color flow Doppler performed. QUALITY: Technically difficult due to patients condition. 65 , 307#, BSA 2.37 m2, BP 126/66 LEFT VENTRICLE: Normal chamber size. No left ventricular hypertrophy. Normal systolic function. LV EF: Normal left ventricular ejection fraction, (55-60%). DIASTOLIC: Normal diastolic function. ATRIAL SEPTUM: LEFT ATRIUM: Normal chamber size. RIGHT ATRIUM: Normal chamber size. RIGHT VENTRICLE: Normal chamber size. TRICUSPID VALVE: Normal mobility and thickness. No stenosis with trivial regurgitation. No evidence of pulmonary hypertension. RVSP 31 mmHg MITRAL VALVE: Normal mobility and thickness. No evidence of mitral valve stenosis. There is no mitral annular calcification. No mitral regurgitation. AORTIC VALVE: Normal trileaflet appearance. No visible sclerosis. Normal leaflet mobility. No evidence of aortic valve stenosis. No aortic regurgitation. AORTIC ROOT: Normal diameter and appearance. PULMONIC VALVE: Not well visualized. PERICARDIUM: No evidence of pericardial effusion. IVC: Collapses with inspirations. IVC is normal in size. PLEURA: CONCLUSION: 1. Normal ventricular systolic function. LVEF is 55 to 60%. 2. Normal diastolic function. 3. No valvular dysfunction. 4. Normal right-sided pressures. 5. No pericardial effusion. Adult Echocardiography Procedure Report Left Ventricle LVEDD (3.7 - 5.6 cm): 4.61 cm LVESD (2.2 - 4.0 cm): 3.61 cm LVIVS thickness (0.6 - 1.2 cm): 1.05 cm LVPW thickness (0.5 - 1.0 cm): 1.04 cm e': 0.12 m/s E - e': 6.41 LVOT Max Gradient: 1.20 mm[Hg] LVOT Area (cm2): 0.55 m/s Peak Velocity (LVOT): 0.55 m/s LVOT Diameter 2.18 cm Left Atrium LA Volume Index (2D A2C): 27.75 ml/m2 Left Atrium Systolic Dimension: 3.29 cm Mitral Valve MV E to A Ratio: 1.02 Mitral Valve A-Wave Peak Velocity: 0.78 m/s Mitral Valve E-Wave Peak Velocity: 0.79 m/s Right Ventricle Aorta AO Root Diam: 3.12 cm Aortic Valve AoV Area (Peak Issa): 1.44 cm2, 1.44 cm2 Peak Velocity(Antegrade Flow): 1.42 m/s Peak Gradient(Antegrade Flow): 8.04 mm[Hg] Tricuspid Valve Peak Velocity (Regurgitant Flow): 2.65 m/s Pulmonic Valve Mean Gradient: 2.40 mm[Hg], 2.81 mm[Hg] Mean Velocity: 0.70 m/s, 0.78 m/s Peak Velocity: 1.11 m/s, 1.12 m/s Peak Gradient: 4.76 mm[Hg], 5.08 mm[Hg], 5.00 mm[Hg] Right Atrium Right Atrium Systolic Pressure: 43.75 ml, 43.75 ml Dictated by: Jt Prater M.D. on 06/27/2023 at 08:37 Approved by: Jt Prater M.D. on 06/27/2023 at 08:40
== END 2023-06-22 12:04 | disposition home or self-care (01) ==
LOC: CARD 12:06
PROVIDERS: Visit Provider Internal Medicine Cardiovascular Disease
DX: R94.31 Abnormal electrocardiogram [ECG] [EKG] (principal); I10 Essential (primary) hypertension
CPT/HCPCS: 93306

== ENCOUNTER 2023-06-23 10:34 | Outpatient (OUT) | payer MEDICARE, MEDICAID, SELFPAY ==
--- OUTSIDE RECORDS SUMMARY | 2023-06-23 10:53 | XMS_ITS | CCD ---
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 Care Molder Wax Ball Name Role Phone Virgilio Carrera Unavailable Jaxson ([facility]), ADRIANNE Pizano Attending Provider Plank, DO Maged Primary Care Provider [phone] Nicholas Luu Unavailable [phone] MD Nicholas Luu Attending Provider [phone] Plank, DO Maged Primary Care Provider Cory, DO Maged Primary Care Provider [phone] MD Nicholas Luu Attending Provider DO Saul Esparza Emergency Provider [phone] Plank, DO Maged Primary Care Provider [phone] MD Zeferino Allen Attending Provider Jaxson ([facility]), ADRIANNE Pizano Attending Provider Cory, DO Maged Primary Care Provider [phone] MD Nicholas Luu Attending Provider AVRIL RENDON Attending Unavailable Antwan Delacruz Admitting Unavailable Plank, Maged Primary Care Unavailable Antwan Delacruz Attending Unavailable Plank, Maged Primary Care Unavailable Asaad, Imad Attending Unavailable Asaad, Imad Admitting Unavailable Plank, Maged Primary Care Unavailable Anamika Chadwick Attending Unavailable Anamika Chadwick Admitting Unavailable Plank, Maged Primary Care Unavailable Saul Esparza Attending Unavailable Saul Esparza Admitting Unavailable Antwan Delacruz Admitting Unavailable Plank, Maged Primary Care Unavailable Antwan Delacruz Attending Unavailable Plank, Maged Primary Care Unavailable Nicholas Luu Attending Nicholas Brown Admitting Unavaila ble Jaxson ([facility]), Tamika Pizano Admitting Jigar batista Maged Ray Primary Care Unavailable Rice ([facility]), Tamika Pizano Attending Jigar batista Allergies Allergy Classification Reported Allergen(s) Allergy Type Date of Onset Reaction(s) Facility (8 sources) cyclobenzaprine Drug Allergy 3 [facility] (8 sources) Naproxen Drug Allergy 3 [facility] (4 sources) pineapple; Translations: [pineapple] Allergy to substance 3 Anaphylaxis [facility] (1 source) cyclobenzaprine Drug Allergy 4 [facility] Repository (1 source) Naproxen Drug Allergy [address] [place] [address] Repository Medications Current Medications Medication Drug Class(es) Dates Sig (Normalized) Sig (Original) [id number] 200 actuat albuterol 0.09 mg/actuat metered dose [...] August 20, 2022 12:00am polyethylene glycol 3350 789010 mg / potassium chloride 2970 mg / sodium bicarbonate 6740 mg / sodium chloride 5860 mg / sodium sulfate 46324 mg powder for oral solution (1 source) [...] [Pain in right foot] Onset: 06-12-2023 Episodic Other non-traumatic joint disorders (1 source) Pain in right hip; Translations: [Pain in right hip] Onset: 06-21-2023 Episodic Other non-traumatic joint disorders (1 source) Pain in left hip; Translations: [Pain in left hip] Onset: 06-21-2023 Episodic Residual codes; unclassified (2 sources) Obstructive [...] Name Value Interpretation Reference Range Facility XR pelvis 1-2Von 06-21-2023 XR pelvis 1-2V [facility] [address] [address] XRay Report Signed Patient: Lisa Leblanc MR#: [id number] : 1965 Acct:[id number] Age/Sex: 58 / F ADM Date: 06/21/23 Loc: ER Room: Type: PRE ER Attending Dr: Copies to: KELSEA Burnette Ordering Provider: KELSEA Burnette Date of Service: 06/21/23 XR/XR pelvis 1-2V: Fall AP PELVIS: CLINICAL HISTORY: Patient fell today and has hip pain bilaterally. COMPARISON: None No fracture, dislocation or bony destruction is seen. The hip joint spaces are symmetric. There is minor marginal spurring. There is sclerosis at the SI joints.. The SI joints are intact. There are no soft tissue abnormalities. XR/XR pelvis 1-2V IMPRESSION: NO ACUTE BONY INJURY. Impression dictated by: Wendy Benavides M.D.06/21/2023 12:03 PM Dictation Location: [place] [address] Transcribed By: [facility] 06/21/23 1203 Dictated By: Wendy Benavides MD 06/21/23 1202 Signed By: 06/21/23 1203 Normal [facility] XR pre/post mri xrayon 04-16 XR pre/post mri xray [facility] [address] [address] MRI Report Signed Patient: Lisa Leblanc MR#: [id number] : 1965 Acct:[id number] Age/Sex: 58 / F ADM Date: 04/17/23 Loc: MR [facility]: [facility]: Antwan Delacruz DPM, MS Copies to: Antwan Delacruz DPM, MS Ordering Provider: Antwan Delacruz DPM, MS Date of Service: 04/17/23 MR/MR ankle RT wo con: PERONEAL TEAR, PTTD ([id number]) XR/XR pre/post mri xray: PERONEAL TEAR, PTTD [...] Silver Montoya M.D.04/17/2023 12:21 PM Dictation Location: [place] [address] Transcribed By: [facility] 04/17/23 1221 Dictated By: Silver Montoya DO 04/17/23 1148 Signed By: 04/17/23 1221 Normal [facility] MM screening mammo BI w/CADo n 10-21-2022 MM screening mammo BI w/CAD [facility] [place] [id number] Mammography Report Signed Patient: Lisa Leblanc MR#: [id number] : 1965 Acct:[id number] Age/Sex: 57 / F ADM Date: 10/21/22 Loc: [place] Room: Type: [facility] Attending Dr: Tamika Puri ([facility]) ADRIANNE Copies to: Tamika Puri APRN MATA Ray DO Ordering Provider: Tamika Puri APRN, [...] Wendy Benavides M.D.10/21/2022 2:32 PM Dictation Location: [facility] Transcribed By: [facility] 10/21/22 1432 Dictated By: Wendy Benavides MD 10/21/22 1429 Signed By: 10/21/22 1432 Normal [facility] Glucose Glucometer (BldC) [M ass/Vol]Ordered By: Zeferino Allen on 10-10-2022 Glucose [Mass/Vol] 114 mg/dL [facility] Comment on above: Random Glucose Refer ence Range is dependent on time and content of last meal. Glucose of more than 200 mg/dL in a nonstressed, ambulatory subject supports the diagnosis of Diabetes Mellitus. Glucose Poct Glucometerson 0 10-10-2022 Commemt1 Glu2: Cleaned Meter Normal [facility] Comment on above: Result Comment: PERF ORMED BY: [place] [id number] PATHOLOGIST GLOBAL RECRUITER AMIE BENJAMIN M.D. Performed By: #### G LULS #### Point of Care testing , Glucose [Mass/Vol] 114 mg/dL Normal [facility] Comment on above: Result Comment: [place] Glucose Reference Range is dependent on time and content of last meal. Glucose of more than 200 mg/dL in a nonstressed, ambulatory subject supports the diagnosis of Diabetes Mellitus. Performed By: #### G LULS #### Point of Care testing , No Panel InformationOrdered By: Zeferino Allen on 10-10-2022 Bedside Glucose Comment Glu2: cleaned meter [facility] XR knee RT 4V*on 08-21-2022 XR knee RT 4V* [facility] [place] [address] [place] [address] XRay Report Signed Patient: Lisa Leblanc MR#: [id number] : 1965 Acct:[id number] Age/Sex: 57 / F ADM Date: 08/20/22 Loc: ER Room: Type: [facility] ER Attending Dr: Copies to: Saul [...] Hua Michaud M.D.08/21/2022 10:52 AM Dictation Location: [place] [address] Transcribed By: RHINA 08/21/22 1052 Dictated By: Hua Michaud II, MD 08/21/22 1051 Signed By: 08/21/22 1052 Normal [facility] Vital Signs Date Time Vital Sign Value Performing Clinician Jefferson aceves 12-07-2022 13:00-0400 Body height Nicholas Luu Other [facility] [facility] Other 12-07-2022 13:00-0400 Body mass index (BMI) [Ratio] 46.76 kg/m2 Raymondkarenkavon Bell Other [facility] [facility] Other 12-07-2022 13:00-0400 Body weight 127.46 kg Nicholas uLu Other [facility] [facility] Other 12-07-2022 13:00-0400 Diastolic blood pressure 87 mm[Hg] Nicholas Luu Other [facility] Other 12-07-2022 13:00-0400 SaO2% (BldA) [Mass fraction] 97 % Nicholas Luu Other [facility] Other 12-07-2022 13:00-0400 Systolic blood pressure 137 mm[Hg] Nicholas Luu Other [facility] Other 10-10-2022 10:40-0400 Diastolic blood pressure 66 mm[Hg] DO Saul Tupa Work Phone: [facility] 10-10-2022 10:40-0400 Heart rate 60 /min DO Saul Tupa Work Phone: [facility] 10-10-2022 10:40-0400 Respiratory rate 16 /min DO Saul Tupa Work Phone: [facility] 10-10-2022 10:40-0400 SaO2% (BldA) [Mass fraction] 96 % DO Saul Tupa Work Phone: [facility] 10-10-2022 10:40-0400 Systolic blood pressure 138 mm[Hg] DO Saul Tupa Work Phone: [facility] 10-10-2022 08:18-0400 Body height 165.1 cm DO Saul Tupa Work Phone: [facility] 10-10-2022 08:18-0400 Body temperature 97.6 [degF] DO Saul Tupa Work Phone: [facility] 10-10-2022 08:18-0400 Body weight 124.73 kg DO Saul Tupa Work Phone: [facility] 08-21-2022 00:11-0400 Diastolic blood pressure 82 mm[Hg] DO Saul Tupa Work Phone: [facility] 08-21-2022 00:11-0400 Heart rate 88 /min DO Saul Tupa Work Phone: [facility] 08-21-2022 00:11-0400 Respiratory rate 20 /min DO Saul Tupa Work Phone: [facility] 08-21-2022 00:11-0400 SaO2% (BldA) [Mass fraction] 99 % DO Saul Tupa Work Phone: [facility] 08-21-2022 00:11-0400 Systolic blood pressure 147 mm[Hg] DO Saul Tupa Work Phone: [facility] 08-20-2022 21:43-0400 Body height 165.1 cm DO Saul Tupa Work Phone: [facility] 08-20-2022 21:43-0400 Body temperature 98.6 [degF] DO Saul Tupa Work Phone: [facility] 08-20-2022 21:43-0400 Body weight 131.6 kg DO Saul Esparza Work Phone: [facility] 11-19-2021 11:30-0400 Body height Nicholas Llamasno Other [facility] [facility] Other 11-19-2021 11:30-0400 Body mass index (BMI) [Ratio] 45.26 kg/m2 Rodneyer Bell Other [facility] [facility] Other 11-19-2021 11:30-0400 Body temperature 96.2 [degF] Rodneyer Bell Other [facility] [facility] Other 11-19-2021 11:30-0400 Body weight 123.38 kg Rodneyer Bell Other [facility] [facility] Other 11-19-2021 11:30-0400 Diastolic blood pressure 82 mm[Hg] Rodneyer Bell Other [facility] Other 11-19-2021 11:30-0400 SaO2% (BldA) [Mass fraction] 99 % Rodneyer Bell Other [facility] Other 11-19-2021 11:30-0400 Systolic blood pressure 123 mm[Hg] Rodneyer Bell Other [facility] Other 08-12-2021 11:45-0400 Body height Virgilio Carrera Other [facility] Other 08-12-2021 11:45-0400 Body mass index (BMI) [Ratio] 46.06 kg/m2 Virgilio Carrera Other [facility] [facility] Other 08-12-2021 11:45-0400 Body weight 125.56 kg Virgilio Debi Other [facility] [facility] Other 08-12-2021 11:45-0400 Diastolic blood pressure 82 mm[Hg] Virgilio Carrera Other [facility] Other 08-12-2021 11:45-0400 Respiratory rate 18 /min Virgilio Debi Other [facility] Other 08-12-2021 11:45-0400 SaO2% (BldA) [Mass fraction] 98 % Virgilio Carrera Other [facility] Other 08-12-2021 11:45-0400 Systolic blood pressure 122 mm[Hg] Virgilio Carrera Other [employer] Other Encounters Encounter Date Encounter Type Care Provider Facility Start: 06-21-2023 End: 06-21-2023 Emergency department patient visit Maged Ray Facility:[facility] Start: 06-12-2023 ambulatory Antwan Delacruz Faci lity:[facility] Start: 04-17-2023 End: 04-17-2023 ambulatory Antwan Delacruz Facility:[facility] Start: 01-24-2023 End: 01-24-2023 ambulatory AVRIL RENDON Not Available Start: 12-07-2022 End: 12-07-2022 ambulatory Maged Ray Facility:[facility] Start: 12-07-2022 Office outpatient visit 10 minutes Nicholas Luu [facility] Start: 12-07-2022 End: 12-07-2022 ambulatory DO Maged Plank Work Phone: [facility] Work Phone: Start: 12-07-2022 End: 12-07-2022 Patient encounter procedure DO Maged Plank Work Phone: [facility] Work Phone: Start: 10-21-2022 End: 10-21-2022 ambulatory Tamika Puri ([facility]) Facility:[facility] Start: 10-21-2022 End: 10-21-2022 ambulatory DO Saul Esparza Work Phone: [facility] Work Phone: Start: 10-21-2022 End: 10-21-2022 Patient encounter procedure DO Saul Esparza Work Phone: [facility] Work Phone: Start: 10-10-2022 End: 10-10-2022 ambulatory Maged Ray Facility:[facility] Start: 10-10-2022 End: 10-10-2022 Admission to same day surgery center DO Saul Esparza Work Phone: [facility] Work Phone: Start: 10-10-2022 End: 10-10-2022 ambulatory DO Saul Esparza Work Phone: [facility] Work Phone: Start: 08-20-2022 End: 08-21-2022 Emergency department patient visit Maged Ray Facility:[facility] Start: 08-20-2022 End: 08-21-2022 Emergency department patient visit DO Saul Esparza Work Phone: [facility] Work Phone: Start: 03-16-2022 End: 03-16-2022 ambulatory DO Maged Ray Work Phone: [facility] Work Phone: Start: 03-16-2022 End: 03-16-2022 Patient encounter procedure DO Maged Ray Work Phone: [facility] Work Phone: Start: 01-12-2022 End: 01-12-2022 ambulatory DO Maged Ray Work Phone: [facility] Work Phone: Start: 01-12-2022 End: 01-12-2022 Patient encounter procedure DO Maged Ray Work Phone: [facility] Start: 11-19-2021 End: 11-19-2021 ambulatory Nicholas Luu Other [facility] Other Start: 11-19-2021 Office outpatient ne w 30 minutes Nicholas Luu [facility] Start: 11-19-2021 End: 11-19-2021 Patient encounter procedure DO Maged Ray Work Phone: [facility] Start: 09-14-2021 End: 09-14-2021 Patient encounter procedure ADRIANNE Puri ([facility]) Work Phone: [facility] Start: 09-06-2021 End: 09-06-2021 ambulatory Virgilio Carrera Other [facility] Other Start: 09-06-2021 Telephone encounter Virgilio [facility] Start: 08-12-2021 End: 08-12-2021 ambulatory Virgilio Carrera Other [place] [employer] Other Start: 08-12-2021 Office outpatient ne w 30 minutes Virgilio Carrera [facility] Procedures Date Procedure Procedure Detail Performing Clinician Start: 10-21-2022 Screening mammograph y of bilateral breasts DO Saul Esparza Work Phone: Start: 10-10-2022 Screening colonoscopy D O Saul Tupa Work Phone: Start: 08-20-2022 X-ray of right knee DO Saul Gardnerpa Work Phone: Start: 09-14-2021 Screening mammograph y of bilateral breasts 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 Tamika Puri ([facility]) Work Phone: Plan of Treatment Date Care Activity Detail Author Start: 10-10-2022 [facility] Start: 08-20-2022 X-ray of right knee XR knee RT 4V* F [facility] Start: 08-20-2022 XR Knee - right 4 Views [facility] Patient Education [facility] Work Phone: Patient referral [facility] Work Phone: Payers Date Payer Category Payer Unknown [id number] 2022 Medicare [id number] 2.1 [id number] 2022 Self-pay [id number] 2021 Medicaid [id number] 1965 Unknown [id number] Medicare [id number] b Medicare [place] [employer] Dual [id number] b Unknown [id number] Unknown [id number] Unknown [id number] Unknown [id number] Unknown [id number] Unknown [id number] Unknown [id number] Social History Date Type Detail Facility Sex Assigned At [facility] Other Start: 1965 Sex Assigned At Female F [facility] Start: 08-20-2022 Tobacco smoking stat us NHIS Never smoked tobacco (finding) [facility] Goals Date Patient Goal Desired Activity /State Evaluation note 12-07-2022 Note Date & Type Note Facility 12-07-2022 Evaluation note Encounter Date Diagnosis Assessment Notes Nov, Obstructive sleep apnea (ICD-10 - G47.33) [facility] Other Procedure note 10-10-2022 Note Date & Type Note Facility 10-10-2022 Procedure note [facility] Evaluation note 11-19-2021 Note Date & Type Note Facility 11-19-2021 Evaluation note Encounter Date Diagnosis Assessment Notes Nov, Obstructive sleep apnea (ICD-10 - G47.33) [facility] Other Evaluation note 09-06-2021 Note Date & Type Note Facility 09-06-2021 Evaluation note Encounter Date Diagnosis Assessment Notes Aug, Mixed hyperlipidemia (ICD-10 - E78.2) Aug, Primary hypertension (ICD-10 - I10) [facility] Other Evaluation note 08-12-2021 Note Date & [...] will be difficult for her to pay [id number]. 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 [employer] Other History general Narrative - Reported 03-06-2021 Note Date & Type Note Facility 03-06-2021 History general N arrative - Reported Type Surgical History knee surgery-bilateral Surgical History C section Surgical History finger surgery 03/06 Hospitalization History see above [facility] Other Evaluation note Note Date & Type Note Facility Evaluation note No assessment information availa [facility] Work Phone: History and physical note Note Date & Type Note Facility History and physical note Note Date/Time October 10, 2022 9:46am [facility] [address] [place] [address] Gastroenterology H&P Signed Patient: Lisa Leblanc MR#: [id number] : 1965 Acct:[id number] Age/Sex: 57 / F Adm Date: 3 Loc: Room: Type: [facility] Attending Dr: Zeferino Allen MD Copies to: [...] <Electronically signed by Zeferino Allen MD> 10/10/22 0986 [facility] Work Phone: History general Narrative - Reported Note Date & Type Note Facility History general Narrative - Reported Type Surgical History knee surgery-bilateral Surgical History C section Surgical History finger surgery 03/06 Hospitalization History see above [facility] [facility] Other Hospital Discharge instructions Note Date & [...] years. -Follow up with PCP. -Office number [phone]. 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 DATE CREATED AUTHOR AUTHOR'S ORGANIZ ATION 06/23/2023 [facility] y[facility] FOR RECORDS PERTAINING TO PATIENTS [...] BE BASED ON THE PRIMARY CLINICAL RECORDS. [facility] [employer] provides no warranty or guarantee of the accuracy or completeness of information in this document.
== END 2023-06-23 10:35 | disposition home or self-care (01) ==
LOC: PST 10:34
PROVIDERS: Visit Provider Podiatrist Foot & Ankle Surgery
DX: Z01.818 Encounter for other preprocedural examination (principal); M25.871 Other specified joint disorders, right ankle and foot; M25.371 Other instability, right ankle

== ENCOUNTER 2023-06-26 09:31 | Day surgery (SDC) | payer MEDICARE, MEDICAID, SELFPAY ==
[2023-06-13 09:55] VITALS: BP 142/80; PULSE 91; TEMP 36.2; O2SAT 96; BMI 53.3
[2023-06-26 09:41] LABS: Basophils Percent Auto 0.4 % (0.2-2.0); Eosinophils Absolute Auto 0.1 10^3/uL (0.0-0.7); Eosinophils Percent Auto 1.3 % (0.9-7.0); Hemoglobin 10.8 g/dL (12.0-16.0); Immature Granulocytes Abs Auto 0.04 10^3/uL (0.00-0.03); Immature Granulocytes Pct Auto 0.4 % (0.0-0.5); Lymphocytes Absolute Auto 2.6 10^3/uL (1.2-3.8); Mean Corpuscular HGB Conc 30.9 g/dL (29.9-35.2); Mean Corpuscular Hemoglobin 23.7 pg (26.7-34.0); Mean Corpuscular Volume 76.9 fL (81.0-99.0); Mean Platelet Volume 10.8 fL (9.5-13.5); Monocytes Absolute Auto 0.5 10^3/uL (0.3-0.8); Neutrophils Absolute Auto 6.4 10^3/uL (1.4-6.5); Neutrophils Percent Auto 65.9 % (43.0-75.0); Platelet Count 296 10^3/uL (150-450); Red Blood Count 4.55 10^6/uL (4.20-5.40); Red Cell Distribution Width 17.5 % (11.0-15.0); White Blood Count 9.7 10^3/uL (4.0-11.0)
[2023-06-26 09:45] VITALS: BP 131/69; PULSE 88; TEMP 36; O2SAT 98; BMI 51.2
--- OUTSIDE RECORDS SUMMARY | 2023-06-26 09:49 | XMS_ITS | CCD ---
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 Name Role Phone Virgilio Carrera Unavailable Jaxson ([facility])ADRIANNE Attending Provider Plank, DO Maged Primary Care Provider Nicholas Luu Unavailable MD Nicholas Luu Attending Provider Plank, DO Maged Primary Care Provider [phone] Plank, DO Maged Primary Care Provider MD Nicholas Luu Attending Provider Vilma, DO Saul Herrera Emergency Provider [phone] Plank, DO Maged Primary Care Provider MD Zeferino Allen Attending Provider Jaxson ([facility]), ADRIANNE Pizano Attending Provider [phone] Cory, DO Maged Primary Care Provider MD Nicholas Luu Attending Provider AVRIL RENDON Attending Unavailable Antwan Delacruz Admitting Unavailable Plank, Maged Primary Care Unavailable Antwan Delacruz Attending Unavailable Plank, Maged Primary Care Unavailable Asaad, Imad Attending Unavailable Asaad, Imad Admitting Unavailable Plank, Maged Primary Care Unavailable Anamika Chadwick Attending Unavailable Anamika Chadwick Admitting Unavailable Plank, Maged Primary Care Unavailable Saul Esparza Attending Unavailable Saul Esparza Admitting Unavailable HighlAntwan engel Admitting Unavailable Plank, Maged Primary Care Unavailable Antwan Delacruz Attending Unavailable Plank, Maged Primary Care Unavailable Nicholas Luu Attending Nicholas Brown Admitting Unavaila momo Puri ([facility])Tamika Admitting Maged Larson Primary Care Christopher Puri ([facility]), Tamika Pizano Attending DO Maged Larson Primary Care Provider DIANELYS Delacruz Attending Provider Netta MANAGER OF FINANCIAL REPORTING- Anamika Lopez Emergency Provider CHANTELLE PLUNKETT Attending Unavailable Allergies Allergy Classification Reported Allergen(s) Allergy Type Date of Onset Reaction(s) Facility (10 sources) cyclobenzaprine; Translations: [CYCLOBENZAPRINE] Drug Allergy 2 [facility] (10 sources) Naproxen; Translations: [NAPROXEN] Drug Allergy 2 [facility] (6 sources) pineapple; Translations: [pineapple] Allergy to substance 9 Anaphylaxis [facility] (1 source) cyclobenzaprine Drug Allergy 4 [facility] Repository (1 source) Naproxen Drug Allergy 4 [facility] Repository Medications Current Medications Medication Drug Class(es) Dates Sig (Normalized) Sig (Original) acetaminophen 325 mg / HYDROcodone bitartrate 5 mg oral tablet (1 source) Opioid Agonist Start: 06-21-2023 take 1 tablet by mouth every six hours Hydrocodone-Aceta minophen Active 1 TAB PO Every 6 hours 10 June 21, 2023 Start: 06-21-2023 take 1 tablet by vineet th every six hours Hydrocodone-Acetaminophen Active 1 TAB P O Every 6 hours 10 June 21, 2023 [id number] 200 actuat albuterol 0.09 mg/actuat metered dose inhaler (4 sources) beta2-Adrenergic Agonist take 1 puff(s) by inhalation every four hours as needed Proventil HFA 108 (90 Base) MCG/ACT 1 puff as needed Inhalation every 4 hrs for 30 day(s) Active atorvastatin 40 mg oral tablet (9 sources) HMG-CoA Reductase Inhibitor Start: 2022 take 40 mg by mouth once daily [...] Dulaglutide (Trulicity) 4.5 mg/0.5 mL Pen Injector (5 sources) Start: 2022 Dulaglutide (Trulicity) 4.5 mg/0.5 mL Pen Injector Active 4.5 MG SUBCUT every week August 20, 2022 12:00am Incruse Ellipta 62.5 MCG/INH (1 source) take 1 puff(s) by inhalation once daily Incruse Ellipta 62.5 MCG/INH 1 puff Inhalation Once a day for 30 day(s) Active Insulin Degludec (Tresiba Flextouch U-100) 100 unit/mL (3 mL) Insulin Pen (5 sources) Start: 2022 Insulin Degludec (Tresiba Flextouch U-100) 100 unit/mL (3 mL) Insulin Pen Active 50 UNIT SUBCUT Daily at bedtime August 20, 2022 12:00am losartan potassium 100 mg oral tablet (9 sources) Angiotensin 2 Receptor Darshan Start: 2022 take 100 mg by mouth once daily Losartan Active 100 MG PO Daily August 20, 2022 12:00am metFORMIN hydrochloride 1000 mg oral tablet (5 sources) Biguanide Start: 2022 take 1000 mg by mouth twice daily Metformin Active 1000 MG PO Twice daily August 20, 2022 12:00am polyethylene glycol 3350 [id number] mg / potassium chloride 2970 mg / sodium bicarbonate 6740 mg / sodium chloride 5860 mg / sodium sulfate 79931 mg powder for oral solution (1 source) Osmotic Laxative Start: 2022 take 236 g by mouth once daily Golytely 236 GM as directed Orally once daily for 1 days Aug, Active Vitamin (4 sources) Vitamin Active Umeclidinium (7 sources) Anticholinergic Start: 2022 take 62.5 ug by inhalation once daily Umeclidinium (Incruse Ellipta) 62.5 mcg/actuation Blister With Device Active 1 INH INHALATION Daily October 10, 2022 12:00am take 1 puff(s) by inhalation onc e daily Incruse Ellipta 62.5 MCG/INH 1 puff Inhalation Once a day for 30 day(s) Active Completed/Discontinued Medications Medication Drug Class(es) Dates Sig (Normalized) Sig (Original) ibuprofen 800 mg oral tablet (5 sources) Nonsteroidal Anti-inflammatory Drug Start: 08-20-2022 End: [...] [Mixed hyperlipidemia] Onset: 08-12-2021 Resolved: 09-06-2021 Chronic E Codes: Fall (1 source) Fall; Translations: [Unspecified fall, initial encounter] 06-21-2023 Episodic Essential hypertension (8 sources) Essential hypertension; Translations: [Essential (primary) hypertension] Onset: 08-12-2021 Resolved: 09-06-2021 Chronic Heart valve disorders (2 sources) Cardiac murmur, unspecified; Translations: [Cardiac murmur, unspecified] Onset: 06-22-2023 Episodic Other connective tissue disease (1 source) Pain in right foot; Translations: [Pain in right foot] Onset: 06-12-2023 Episodic Other non-traumatic joint disorders (1 source) Pain in right hip; Translations: [Pain in right hip] Onset: 06-21-2023 Episodic Other non-traumatic joint disorders (1 source) Pain in left hip; Translations: [Pain in left hip] Onset: 06-21-2023 Episodic Other non-traumatic joint disorders (1 source) Hip pain; Translations: [Pain in right hip] 06-21-2023 Episodic Other screening for suspected conditions (not mental disorders or infectious disease) (2 sources) Abnormal electrocardiogram [ECG] [EKG]; Translations: [Abnormal electrocardiogram (ECG) (EKG)] Onset: 06-22-2023 Episodic Residual codes; unclassified (2 sources) Obstructive sleep apnea syndrome; Translations: [Obstructive sleep apnea (adult) (pediatric)] Chronic Residual codes; unclassified (2 sources) Obstructive sleep apnea (adult) (pediatric) Chronic Residual codes; unclassified (1 source) Obstructive sleep apnea (adult)(pediatric); Translations: [Obstructive sleep apnea (adult) (pediatric)] Onset: 12-07-2022 Chronic Sprains and strains (5 sources) Sprain of knee; Translations: [Sprain of [...] Test Name Value Interpretation Reference Range Facility Office Visiton 06-22-2023 Follow-up visit [id number] Lisa De Santiago 1965 F Date Provider Department Center 06/22/2023 [id number] PLUNKETT [facility] Family History Problem Relation Age of Onset Diabetes Mother Diabetes Brother Family Status - Relation Status Age at Mother Brother Level of Service:85029 RI OFFICE/OUTPATIENT NEW MODERATE MDM 45 MINUTES Normal [facility] XR pelvis 1-2Von 06-21-2023 XR pelvis 1-2V [address] [address] XRay Report Signed Patient: Lisa De Santiago MR#: [id number] : 1965 Acct:[id number] Age/Sex: 58 / F ADM Date: 06/21/23 [...] Wendy Benavides M.D.06/21/2023 12:03 PM Dictation Location: [place] [address] Transcribed By: [facility] 06/21/23 1203 Dictated By: Wendy Benavides MD 06/21/23 1202 Signed By: 06/21/23 1203 Normal [facility] XR pre/post mri xrayon 04-16 XR pre/post mri xray [facility] Main [address] [address] MRI Report Signed Patient: Lisa De Santiago MR#: [id number] : 1965 Acct:[id number] Age/Sex: 58 / F ADM Date: 04/17/23 Loc: MR Room: Type: REG CLI Attending Dr: Antwan Delacruz DPM, MS Copies to: Antwan Delacruz DPM, MS Ordering Provider: Antwan Delacruz DPM, MS Date of Service: 04/17/23 MR/MR ankle RT wo con: PERONEAL TEAR, PTTD ([id number]) XR/XR pre/post mri xray: PERONEAL TEAR, PTTD [...] Silver Montoya M.D.04/17/2023 12:21 PM Dictation Location: [place] [address] Transcribed By: [facility] 04/17/23 1221 Dictated By: Silver Montoya DO 04/17/23 1148 Signed By: 04/17/23 1221 Normal [facility] MM screening mammo BI w/CADo n 10-21-2022 MM screening mammo BI w/CAD [facility] Main [place] [address] [place] [address] Mammography Report Signed Patient: Lisa De Santiago MR#: [id number] : 1965 Acct:[id number] Age/Sex: 57 / F ADM Date: 10/21/22 Loc: [place] Room: Type: [facility] Attending Dr: Tamika Puri ([facility]) ADRIANNE Copies to: Tamika Puri APRN, WHCNP Timothy Plank, DO Ordering Provider: Tamika Puri APRN, WHCNP [...] Wendy Benavides M.D.10/21/2022 2:32 PM Dictation Location: [facility] Transcribed By: [facility] 10/21/22 1432 Dictated By: Wendy Benavides MD 10/21/22 1429 Signed By: 10/21/22 1432 Normal [facility] Glucose Glucometer (dC) [M ass/Vol]Ordered By: Zeferino Allen on 10-10-2022 Glucose [Mass/Vol] 114 mg/dL [facility] Comment on above: Random Glucose Refer ence Range is dependent on time and content of last meal. Glucose of more than 200 mg/dL in a nonstressed, ambulatory subject supports the diagnosis of Diabetes Mellitus. Glucose Poct Glucometerson 0 10-10-2022 Commemt1 Glu2: Cleaned Meter Normal [facility] Comment on above: Result Comment: PERF ORMED BY: [facility] [address] [place] [address] PATHOLOGIST CONSOLE ASSEMBLER AMIE BENJAMIN M.D. Performed By: #### G LULS #### Point of Care testing , Glucose [Mass/Vol] 114 mg/dL Normal [facility] Comment on above: Result Comment: [place] Glucose Reference Range is dependent on time and content of last meal. Glucose of more than 200 mg/dL in a nonstressed, ambulatory subject supports the diagnosis of Diabetes Mellitus. Performed By: #### G LUMATA #### Point of Care testing , No Panel InformationOrdered By: Zeferino Allen on 10-10-2022 Bedside Glucose Comment Glu2: cleaned meter [facility] XR knee RT 4V*on 08-21-2022 XR knee RT 4V* [facility] Main [place] [address] [place] [address] XRay Report Signed Patient: Lisa De Santiago MR#: [id number] : 1965 Acct:[id number] Age/Sex: 57 / F ADM Date: 08/20/22 Loc: ER Room: Type: [facility] ER Attending Dr: Copies to: Saul Esparza [...] Hua Michaud M.D.08/21/2022 10:52 AM Dictation Location: [place] [address] Transcribed By: [facility] 08/21/22 1052 Dictated By: Hua Michaud II, MD 08/21/22 1051 Signed By: 08/21/22 1052 Normal [facility] Vital Signs Date Time Vital Sign Value Performing Clinician Faci lity 06-21-2023 11:28-0400 Body temperature 98.2 [degF] DO Maged Plank Work Phone: [facility] 06-21-2023 11:28-0400 Diastolic blood pressure 67 mm[Hg] DO Maged Plank Work Phone: [facility] 06-21-2023 11:28-0400 Heart rate 95 /min DO Maged Plank Work Phone: [facility] 06-21-2023 11:28-0400 Respiratory rate 19 /min DO Maged Plank Work Phone: [facility] 06-21-2023 11:28-0400 SaO2% (BldA) [Mass fraction] 99 % DO Maged Plank Work Phone: [facility] 06-21-2023 11:28-0400 Systolic blood pressure 141 mm[Hg] DO Maged Plank Work Phone: [facility] 06-21-2023 11:21-0400 Body height 165.1 cm DO Maged Plank Work Phone: [facility] 06-21-2023 11:21-0400 Body weight 138.34 kg DO Maged Plank Work Phone: [facility] 12-07-2022 13:00-0400 Body height Nicholas Luu Other [employer] Other 12-07-2022 13:00-0400 Body mass index (BMI) [Ratio] 46.76 kg/m2 Nicholas Luu Other [facility] [employer] Other 12-07-2022 13:00-0400 Body weight 127.46 kg Nicholas Luu Other [employer] Other 12-07-2022 13:00-0400 Diastolic blood pressure 87 mm[Hg] Nicholas Luu Other [employer] Other 12-07-2022 13:00-0400 SaO2% (BldA) [Mass fraction] 97 % Nicholas Luu Other [facility] [employer] Other 12-07-2022 13:00-0400 Systolic blood pressure 137 mm[Hg] Nicholas Luu Other [facility] [employer] Other 10-10-2022 10:40-0400 Diastolic blood pressure 66 mm[Hg] DO Saul Tupa Work Phone: [facility] 10-10-2022 10:40-0400 Heart rate 60 /min DO Saul Tupa Work Phone: [facility] 10-10-2022 10:40-0400 Respiratory rate 16 /min DO Saul Tupa Work Phone: [facility] 10-10-2022 10:40-0400 SaO2% (BldA) [Mass fraction] 96 % DO Saul Tupa Work Phone: [facility] 10-10-2022 10:40-0400 Systolic blood pressure 138 mm[Hg] DO Saul Tupa Work Phone: [facility] 10-10-2022 08:18-0400 Body height 165.1 cm DO Saul Tupa Work Phone: [facility] 10-10-2022 08:18-0400 Body temperature 97.6 [degF] DO Saul Tupa Work Phone: [facility] 10-10-2022 08:18-0400 Body weight 124.73 kg DO Saul Tupa Work Phone: [facility] 08-21-2022 00:11-0400 Diastolic blood pressure 82 mm[Hg] DO Saul Tupa Work Phone: [facility] 08-21-2022 00:11-0400 Heart rate 88 /min DO Saul Tupa Work Phone: [facility] 08-21-2022 00:11-0400 Respiratory rate 20 /min DO Saul Tupa Work Phone: [facility] 08-21-2022 00:11-0400 SaO2% (BldA) [Mass fraction] 99 % DO Saul Tupa Work Phone: [facility] 08-21-2022 00:11-0400 Systolic blood pressure 147 mm[Hg] DO Saul Tupa Work Phone: [facility] 08-20-2022 21:43-0400 Body height 165.1 cm DO Saul Tupa Work Phone: [facility] 08-20-2022 21:43-0400 Body temperature 98.6 [degF] DO Saul Jjpa Work Phone: [facility] 08-20-2022 21:43-0400 Body weight 131.6 kg DO Saul Tupa Work Phone: [facility] 11-19-2021 11:30-0400 Body height Nicholas Luu Other [employer] Other 11-19-2021 11:30-0400 Body mass index (BMI) [Ratio] 45.26 kg/m2 Nicholas Luu Other [employer] Other 11-19-2021 11:30-0400 Body temperature 96.2 [degF] Nicholas Luu Other [employer] Other 11-19-2021 11:30-0400 Body weight 123.38 kg Nicholas Luu Other [employer] Other 11-19-2021 11:30-0400 Diastolic blood pressure 82 mm[Hg] Nicholas Bell Other [employer] Other 11-19-2021 11:30-0400 SaO2% (BldA) [Mass fraction] 99 % Raymondjasper Smalldano Other [employer] Other 11-19-2021 11:30-0400 Systolic blood pressure 123 mm[Hg] Nicholas Bell Other [employer] Other 08-12-2021 11:45-0400 Body height Virgilio Carrera Other [employer] Other 08-12-2021 11:45-0400 Body mass index (BMI) [Ratio] 46.06 kg/m2 Virgilio Carrera Other [employer] Other 08-12-2021 11:45-0400 Body weight 125.56 kg Virgilio Carrera Other [employer] Other 08-12-2021 11:45-0400 Diastolic blood pressure 82 mm[Hg] Virgilio Carrera Other [employer] Other 08-12-2021 11:45-0400 Respiratory rate 18 /min Virgilio Carrera Other [employer] Other 08-12-2021 11:45-0400 SaO2% (BldA) [Mass fraction] 98 % Virgilio Carrera Other [employer] Other 08-12-2021 11:45-0400 Systolic blood pressure 122 mm[Hg] Virgilio Carrera Other [employer] Other Encounters Encounter Date Encounter Type Care Provider Facility Start: 06-22-2023 End: 06-22-2023 ambulatory [facility] Start: 06-22-2023 End: 06-22-2023 Encounter for other preprocedural examination [facility] Start: 06-21-2023 End: 06-21-2023 Emergency department patient visit Maged Plank Facility:[facility] Start: 06-21-2023 End: 06-21-2023 Emergency department patient visit DO Maged Plank Work Phone: [facility] Work Phone: Start: 06-12-2023 ambulatory Antwan Delacruz Faci lity:[facility] Start: 06-12-2023 Registered Recurring DO Timoth y Plank Work Phone: [facility] [facility] Start: 04-17-2023 End: 04-17-2023 ambulatory Antwan Delacruz Facility:[facility] Start: 04-17-2023 End: 04-17-2023 Patient encounter procedure DO Maged Plank Work Phone: [facility] Main [place] Work Phone: Start: 01-24-2023 End: 01-24-2023 ambulatory AVRIL RENDON Not Available Start: 12-07-2022 End: 12-07-2022 ambulatory Maged Plank Facility:[facility] Start: 12-07-2022 Office outpatient vi sit 10 minutes Nicholas Luu [facility] Start: 12-07-2022 End: 12-07-2022 ambulatory DO Maged Plank Work Phone: [facility] Work Phone: Start: 12-07-2022 End: 12-07-2022 Patient encounter procedure DO Maged Plank Work Phone: [facility]Sleep [facility] Work Phone: Start: 10-21-2022 End: 10-21-2022 ambulatory Tamika Puri ([facility]) Facility:[facility] Start: 10-21-2022 End: 10-21-2022 ambulatory DO Saul Esparza Work Phone: [facility] Work Phone: Start: 10-21-2022 End: 10-21-2022 Patient encounter procedure DO Saul Esparza Work Phone: [facility] Work Phone: Start: 10-10-2022 End: 10-10-2022 ambulatory Maged Ray Facility:[facility] Start: 10-10-2022 End: 10-10-2022 Admission to same day surgery center DO Saul Esparza Work Phone: [facility] Work Phone: Start: 10-10-2022 End: 10-10-2022 ambulatory DO Saul Esparza Work Phone: [facility] Work Phone: Start: 08-20-2022 End: 08-21-2022 Emergency department patient visit Maged Ray Facility:[facility] Start: 08-20-2022 End: 08-21-2022 Emergency department patient visit DO Saul Esparza Work Phone: [facility] Work Phone: Start: 03-16-2022 End: 03-16-2022 ambulatory DO Maged Ray Work Phone: [facility] Work Phone: Start: 03-16-2022 End: 03-16-2022 Patient encounter procedure DO Maged Plank Work Phone: [facility] Work Phone: Start: 01-12-2022 End: 01-12-2022 ambulatory DO Maged Plank Work Phone: [facility] Work Phone: Start: 01-12-2022 End: 01-12-2022 Patient encounter procedure DO Maged Ray Work Phone: [facility] Start: 11-19-2021 End: 11-19-2021 ambulatory Nicholas Bell Other [employer] Other Start: 11-19-2021 Office outpatient ne w 30 minutes Nicholas Luu [facility] Start: 11-19-2021 End: 11-19-2021 Patient encounter procedure DO Maged Ray Work Phone: [facility] Start: 09-14-2021 End: 09-14-2021 Patient encounter procedure ADRIANNE Tamika Jaxson ([facility]) [facility] Start: 09-06-2021 End: 09-06-2021 ambulatory Virgilio Carrera Other [facility] [employer] Other Start: 09-06-2021 Telephone encounter Virgilio Carrera [facility] Start: 08-12-2021 End: 08-12-2021 ambulatory Virgilio Carrera Other [employer] Other Start: 08-12-2021 Office outpatient ne w 30 minutes Virgilio Carrera [facility] Procedures Date Procedure Procedure Detail Performing Clinician Start: 06-21-2023 Pelvis X-ray DO Maged Ray Work Phone: Start: 04-17-2023 XR pre/post mri xray DO Maged Ray Work Phone: Start: 04-17-2023 MRI of right ankle DO T ganga Ray Work Phone: Start: 10-21-2022 Screening mammograph y of bilateral breasts DO Saul Vilma Work Phone: Start: 10-10-2022 Screening colonoscopy D O Saul Jjpa Work Phone: Start: 08-20-2022 X-ray of right knee DO Saul Esparza Work Phone: Start: 09-14-2021 Screening mammograph y of bilateral breasts LOOM FIXER Tamika Puri ([facility]) Work Phone: Plan of Treatment Date Care Activity Detail Author Start: 10-10-2022 [facility] Start: 08-20-2022 X-ray of right knee XR knee RT 4V* F [facility] Start: 08-20-2022 XR Knee - right 4 Views [facility] Patient Education [facility] Work Phone: Patient referral [facility] Work Phone: Payers Date Payer Category Payer Unknown [id number] 2022 Medicare [id number] 2.1 [id number] 2022 Self-pay [id number] 2021 Medicaid [id number] 1965 Unknown [id number] Medicare [id number] Medicare [place] [employer] Dual [id number] Unknown [id number] Unknown [id number] Unknown [id number] Unknown [id number] Unknown [id number] Unknown [id number] Unknown [id number] Social History Date Type Detail Facility Sex Assigned At [employer] Other Start: 1965 Sex Assigned At Female F [facility] Start: 08-20-2022 [facility] ([facility] Goals Date Patient Goal Desired Activity /State Clinical Notes 03-06-2021 to 06-22-2023 Note Date & Type Note Facility 06-22-2023 Note New patient here to establish care. Ref from Dr. Delacruz for surgery clearance. She had EKG and labs 2 weeks ago for pre-op testing. Her ankle surgeon is requesting clearance for right ankle arthroscopy under general anesthesia. Says she's compliant with cpap therapy. Denies recent chest pain and SOB. Has no prior personal or family cardiac history. Review of Systems Musculoskeletal: Positive for joint pain. All other systems reviewed and are negative. [facility] 06-22-2023 Note [facility] Note Reason for cardiology consult: Cardiac clearance for right ankle surgery due to abnormal EKG Chief Complaint: No cardiac complaints HPI: Lisa De Santiago is a 58 y.o. female without prior cardiac history, she has history of longstanding insulin-dependent diabetes mellitus since 2008 under control per her report, long history of hyperlipidemia and recently diagnosed hypertension. Also she has history of obesity and sleep apnea on CPAP. Feels patient was scheduled for right ankle surgery however EKG came back abnormal showing evidence of T wave abnormality inferior leads poor R progression in anterior leads therefore the surgery was canceled and she was referred for cardiology evaluation. The patient denies chest discomfort on exertion when she was active prior to her right ankle injury. She admits occasional exertional dyspnea when she walks fast. She has history of asthma. She denies orthopnea or paroxysmal nocturnal dyspnea. She admits occasional legs edema and now her right leg is swollen. She denies dizziness, syncope or near syncope. She denies palpitations. She denies smoking, alcohol or illicit drugs. Cardiology ROS: GENERAL: Denies fever, chills, night sweats, weight loss. HEENT: Denies changes in vision, photophobia, changes in hearing, epistaxis, oral bleeding. CARDIOVASCULAR: Denies chest pain, she admits occasional exertional dyspnea however she denies orthopnea/PND, lower extremity edema, palpitations, lightheadedness/dizziness. RESPIRATORY: Denies SOB, coughing, wheezing GI: Denies abdominal pain, nausea/vomiting, heartburn, melena/hematochezia. RENAL: Denies dysuria, hematuria, flank pain. MSK: Denies muscle weakness/pain, she admits right ankle pain NEUROLOGIC: Denies LOC, weakness, numbness, headaches. SKIN: Denies abnormal rashes or bleeding. PSYCH: Denies significant anxiety, depression, sleep disturbances. Past Medical History She has a past medical history of Abnormal ECG, Asthma, Diabetes mellitus (CMS/HCC), Hyperlipidemia, Hypertension, and Sleep apnea. Surgical History She has a past surgical history that includes Total knee arthroplasty; Carpal tunnel release; and Hysterectomy. Social History She reports that she has never smoked. She has never used smokeless tobacco. She reports current alcohol use. No history on file for drug use. Family History Family History Problem Relation Name Age of Onset Diabetes Mother Diabetes Brother Allergies Cyclobenzaprine, Naproxen, and Pineapple Medications Current Outpatient Medications: amLODIPine (Norvasc) 5 mg tablet, Take 5 mg by mouth in the morning., Disp: , Rfl: atorvastatin (Lipitor) 40 mg tablet, Take 40 mg by mouth in the morning., Disp: , Rfl: budesonide-formoteroL (Symbicort) 80-4.5 mcg/actuation inhaler, Inhale 2 puffs in the morning., Disp: , Rfl: dulaglutide (Trulicity) 4.5 mg/0.5 mL pen injector, Inject 4.5 mg under the skin., Disp: , Rfl: Incruse Ellipta 62.5 mcg/actuation inhalation, INHALE 1 PUFF BY INHALATION ROUTE EVERY DAY AT THE SAME TIME EACH DAY, Disp: , Rfl: insulin degludec (Tresiba FlexTouch U-200) 200 unit/mL (3 mL) injection pen, Inject 100 Units under the skin., Disp: , Rfl: losartan (Cozaar) 100 mg tablet, Take 100 mg by mouth in the morning., Disp: , Rfl: metFORMIN XR (Glucophage-XR) 500 mg 24 hr tablet, TAKE 2 TABLETS BY MOUTH TWICE A DAY WITH MEALS, Disp: , Rfl: NovoLOG U-100 Insulin aspart 100 unit/mL injection vial, USE UP TO 100 UNITS DAILY PER PUMP, Disp: , Rfl: Last Recorded Vitals Visit Vitals BP 116/72 (BP Location: Left wrist, Patient Position: Sitting) Pulse 94 Ht 1.651 m (5' 5 ) Wt (!) 138 kg (305 lb) Comment: patient stated SpO2 97% BMI 50.75 kg/m??? Smoking Status Never BSA 2.52 m??? Physical Examination: GENERAL: alert and oriented x3, well developed, in no acute distress. HEAD: atraumatic, normocephalic. EYES: THERESE, EOMI. NECK: trachea midline, no JVD present, no carotid bruits present. CARDIAC: S1, S2 present. RRR. No murmur, rubs, or gallops. RESPIRATORY: CTAB, no increased effort of breathing, no rales, rhonchi, or wheezing. ABDOMEN: soft, nontender, nondistended. EXTREMITIES: Mild edema bilaterally, No rash/skin discoloration present, no clubbing. NEURO: strength/sensation equal and symmetric in bilateral upper and lower extremities. PSYCH: appropriate mood, affect, and judgement. Last Images: EKG 06/13/2023 showed normal sinus rhythm with 1 PVC, T wave inversion in lead III and aVF, poor R progression in V1 to V3 Labs: CBC: 03/08/2021 white blood count 9.7, hemoglobin 12.9, hematocrit 40, platelets 310 PT/INR No results found for: PT , INR BMP: 06/13/2023 sodium 140, potassium 3.9, BUN 19, creatinine 1.9, GFR above 60, glucose 103, calcium 9.9 LFTs: No results found for: BILITOT , BILIDIR , ALKPHOS , GGT , AST , ALT , ALBUMIN , PROT (more content not included)... [facility] 12-07-2022 Evaluation note Encounter Date Diagnosis Assessment Notes Nov, Obstructive sleep apnea (ICD-10 - G47.33) [facility] Encounter Date Diagnosis Assessment Notes Treatment Notes Treatment Clinical Notes Nov, Obstructive sleep apnea (ICD-10 - G47.33) [facility] [employer] Other 07-25-2022 Evaluation note* Encounter Date Diagnosis Assessment Notes Treatment Notes Treatment Clinical Notes Aug, Mixed hyperlipidemia (ICD-10 - E78.2) Aug, Primary hypertension (ICD-10 - I10) [facility] Other 06-30-2022 Evaluation note* Encounter Date Diagnosis Assessment Notes Treatment Notes Treatment Clinical Notes Jul, Type 2 diabetes mellitus without [...] will be difficult for her to pay ftd-ne-wodyiz. 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 Work Phone: History and physical note Author Zeferino Allen [facility] October 10, 2022 9:46am Note Date/Time October 10, 2022 9: 46am [facility] [address] [place], [place] [id number] Gastroenterology H&P Signed Patient: Lisa De Santiago MR#: [id number] : 1965 Acct:[id number] Age/Sex: 57 / F Adm Date: 3 Loc: Room: Type: [facility] Attending Dr: Zeferino Allen MD Copies to: MD Maged Walker,DO~ Date of Service: 10/10/2022 HISTORY & PHYSICAL: [...] signed by Zeferino Allen MD> 10/10/[address] [facility] Work Phone: History general Narrative - Reported* Type Description Date Surgical History knee surgery-bilateral Surgical History C section Surgical History finger surgery 03/06 Hospitalization History see above [employer] Other Hospital Discharge instructions Additional Instructions DISCHARGE INSTRUCTIONS [...] years. -Follow up with PCP. -Office number [phone]. [facility] Work Phone: Hospital Discharge instructions Additional Instructions Ice to sore areas May take dddi-kqw-devybez medicine for mild pain [place] for severe pain take 1 hydrocodone every 6 hours Follow-up with your family doctor for recheck Return to the Pay ER for more severe pain additional [facility] or [facility]: Chief Complaint and Reason for Visit Chief Complaint Screening Chief Complaint g47.30 e66.9 i10 magdalena anton Diagnostic sleep study Chief Complaint Diagnostic sleep marleny dy titration Chief Complaint swollen leg from fal l Chief Complaint swollen leg from fal l Screening Chief Complaint swollen leg from fal l Screening Screening Chief Complaint Screening Screening no show 31-90 in may Chief Complaint peroneal tear, pttd V gait and rt ankle Fall Advance Directives No Advanced Directives Records Found Advance Directive Response Recorded Date/ Time Advance Directives No September 13 3:53pm Advance Directive Response Recorded Date/ Time Advance Directives No November 17, 2021 8:14am Advance Directive Response Recorded Date/ Time Advance Directives No November 17, 2021 9:14am Summary Purpose Family History Relationship Condition Age at Onset Recorded Date/T sherrell Not Specified No pertinent family history Unknown father Unknown Not Specified Diabetes mellitus Unknown No Family History Records Found Additional Source Comments REASON FOR VISIT (unrecogniz ed section and content) EST [facility] Care Teams (unrecognized sec tion and content) Team Status: Inactive Member Role Status Mehreen Puri ([facility]) ADRIANNE Attending Provider Active Maged Ray DO Primary Care Provider Active Team Status: Active Member Role Status Mehreen Ray , DO Primary Care Provider Active Team Status: Inactive Member Role Status Mehreen Ray , DO Primary Care Provider Active Nicholas Luu MD Attending Provider Active Team Status: Inactive Member Role Status Dates Nicholas Luu MD Attending Provider Active Maged Ray DO Primary Care Provider Active Team Status: Inactive Member Role Status Dates Saul Esparza DO Emergency Provider Active Maged Ray DO Primary Care Provider Active Team Status: Inactive Member Role Status Mehreen Ray , DO Primary Care Provider Active Zeferino Allen MD Attending Provider Active Team Status: Inactive Member Role Status Mehreen Ray , DO Primary Care Provider Active Tamika Puri ([facility]) ADRIANNE Attending Provider Active Team Status: Inactive Member Role Status Mehreen Ray , DO Primary Care Provider Active Start: April 17, 2023 End: April 17, 2023 Antwan Delacruz DPM MS Attending Provider Active Start: April 17, 2023 End: March 4th, 2024 Team Status: Active Member Role Status Dates Maged Ray DO Primary Care Provider Active Start: June 12, 2023 Antwan Delacruz DPM MS Attending Provider Active Start: June 12, 2023 Team Status: Inactive Member Role Status Dates [facility]- Emergency Provider Active Start: June 21, 2023 End: June 21, 2023 Maged Ray DO Primary Care Provider Active Start: June 21, 2023 End: June 21, 2023 Goals (unrecognized section and content) Goals may be documented in a n alternate section INFORMATION SOURCE (unrecogn ized section and content) DATE CREATED AUTHOR 01/26/2023 [facility] EPIC DATE CREATED AUTHOR AUTHOR'S ORGANIZ ATION 06/23/2023 [facility] DATE CREATED AUTHOR AUTHOR'S ORGANIZ ATION 06/24/2023 [facility] FOR RECORDS PERTAINING TO PATIENTS WHO ARE [...] BE BASED ON THE PRIMARY CLINICAL RECORDS. [employer] provides no warranty or guarantee of the accuracy or completeness of information in this document.
[2023-06-26] MEDS: LACTATED RINGER'S SOLUTION 1,000 ML 50 ML IV (10:20)
--- NOTE | 2023-06-30 08:49 | PC.NURSE ---
06/26/2023 SURGERY WAS CANCELLED BY ANESTHESIA DUE TO INCOMPLETE CARDIAC CLEARANCE.
== END 2023-06-26 10:00 | disposition home or self-care (01) ==
LOC: SURGOUT 09:32
PROVIDERS: Visit Provider Podiatrist Foot & Ankle Surgery
DX: M25.871 Other specified joint disorders, right ankle and foot (principal); Z53.8 Procedure and treatment not carried out for other reasons
CPT/HCPCS: 27698; 36415; 85025

== ENCOUNTER 2023-08-08 14:49 | Outpatient (OUT) | payer MEDICARE, MEDICAID, SELFPAY | END 2023-08-08 14:50 | disposition home or self-care (01) | LOC: PST 14:49 | PROVIDERS: Visit Provider Podiatrist Foot & Ankle Surgery | DX: Z01.818 Encounter for other preprocedural examination (principal); M25.871 Other specified joint disorders, right ankle and foot; M25.371 Other instability, right ankle ==

== ENCOUNTER 2023-08-10 07:38 | Day surgery (SDC) | payer MEDICARE, MEDICAID, SELFPAY ==
[2023-08-10] VITALS (8 sets, daily range): BP systolic 136–163; BP diastolic 87–107; PULSE 82–93; TEMP 36.1; O2SAT 96–98; BMI 50.8
--- NOTE | 2023-08-10 | FL_ITS ---
[address] [address] Patient Name: SIMONA DE SANTIAGO MRN: [id number] date: 1965 Sex: F Assigned Patient Location: SURGOUT Current Patient Location: Accession/Order Number: [id number] Exam Date: 08/10/2023 12:48 Report Date: 08/11/2023 07:08 At the request of: TONE CARABALLO Procedure: FL fluoroscopy <1hr NON-READ EXAM: FL fluoroscopy <1hr NON-READ HISTORY: TECHNIQUE: FINDINGS: Please see Operative Report. Electronically authenticated by: RADIOLOGIST NO Date: 08/11/2023 07:08
--- OUTSIDE RECORDS SUMMARY | 2023-08-10 07:42 | XMS_ITS | CCD ---
Author Organization [facility] CliniSyia Care Team Providers Care Roustabout Crew Pusher Name Role Phone Virgilio Carrera Unavailable Jaxson ([facility]), ADRIANNE Pizano Attending Provider Cory, DO Maged Primary Care Provider [phone] Nicholas Luu Unavailable MD Nicholas Luu Attending Provider Cory, DO Maged Primary Care Provider Cory, DO Maged Primary Care Provider [phone] MD Nicholas Luu Attending Provider DO Saul Esparza Emergency Provider Plank, DO Maged Primary Care Provider MD Zeferino Allen Attending Provider Jaxson ([facility])ADRIANNE Attending Provider Cory, DO Maged Primary Care Provider [phone] MD Nicholas Luu Attending Provider AVRIL RENDON Attending Unavailable Cory, DO Maged Primary Care Provider DIANELYS Delacruz Attending Provider TATO Chadwick Emergency Provider [phone] Cory, DO Maged Primary Care Provider DIANELYS Delacruz Attending Provider [phone] ADRIANNE Barger Emergency Provider Antwan Delacruz Admitting Unavailable Antwan Delacruz Attending Unavailable Plank, Maged Primary Care Unavailable Antwan Delacruz Admitting Unavailable Antwan Delacruz Attending Unavailable Plank, Maged Primary Care Unavailable Rice ([facility]), Tamika Pizano Admitting Unavailabl e Rice ([facility]), Tamika Piazno Attending Unavailabl e Plank, Maged Primary Care Unavailable Asaad, Imad Admitting Unavailable Asaad, Imad Attending Unavailable Plank, Maged Primary Care Unavailable Bullimore, Anamika E Attending Unavailable Bullimore, Anamika E Admitting Unavailable Plank, Maged Primary Care Unavailable Plank, Maged Primary Care Unavailable Denita, Maged Admitting Unavailable Denita, Maged Attending Unavailable TupaSaul Admitting Unavailable TupaSaul Attending Unavailable Plank, Maged Primary Care Unavailable Bell, Christopher E Admitting Unavaila ble Bell, Christophkavon E Attending Unavaila ble Plank, Maged Primary Care Unavailable CHANTELLE NAVARRO Attending Unavailable CHANTELLE NAVARRO Referring Unavailable Allergies Allergy Classification Reported Allergen(s) Allergy Type Date of Onset Reaction(s) Facility (12 sources) cyclobenzaprine; Translations: [CYCLOBENZAPRINE] Drug Allergy 2 [facility] (12 sources) Naproxen; Translations: [NAPROXEN] Drug Allergy 2 [facility] (8 sources) pineapple; Translations: [pineapple] Allergy to substance 9 Anaphylaxis [facility] (1 source) cyclobenzaprine Drug Allergy 4 [facility] Repository (1 source) Naproxen Drug Allergy 4 [facility] Repository Medications Current Medications Medication Drug Class(es) Dates Sig (Normalized) Sig (Original) [id number] 200 actuat albuterol 0.09 mg/actuat metered dose inhaler (4 sources) beta2-Adrenergic Agonist take 1 puff(s) by inhalation every four hours as needed Proventil HFA 108 (90 Base) MCG/ACT 1 puff as needed Inhalation every 4 hrs for 30 day(s) Active amoxicillin 500 mg oral capsule (1 source) Penicillin-class Antibacterial Start: 08-06-2023 take 500 mg by mouth three times daily Amoxicillin Active 500 MG PO Three times daily August 06, 2023 12:00am atorvastatin 40 mg oral tablet (11 sources) HMG-CoA Reductase Inhibitor Start: 08-20-2022 take [...] mg Subcutaneous weekly for 30 day(s) Active Incruse Ellipta 62.5 MCG/INH (1 source) take 1 puff(s) by inhalation once daily Incruse Ellipta 62.5 MCG/INH 1 puff Inhalation Once a day for 30 day(s) Active Insulin Degludec (Tresiba Flextouch U-100) 100 unit/mL (3 mL) Insulin Pen (7 sources) Start: 08-20-2022 Insulin Degludec (Tresiba Flextouch U-100) 100 unit/mL (3 mL) Insulin Pen Active 50 UNIT SUBCUT Daily at bedtime August 20, 2022 12:00am losartan potassium 100 mg oral tablet (11 sources) Angiotensin 2 Receptor Darshan Start: 08-20-2022 take 100 mg by mouth once daily Losartan Active 100 MG PO Daily August 20, 2022 12:00am metFORMIN hydrochloride 1000 mg oral tablet (7 sources) Biguanide Start: 08-20-2022 take 1000 mg by mouth twice daily Metformin Active 1000 MG PO Twice daily August 20, 2022 12:00am polyethylene glycol 3350 [id number] mg / potassium chloride 2970 mg / sodium bicarbonate 6740 mg / sodium chloride 5860 mg / sodium sulfate 36968 mg powder for oral solution (1 source) Osmotic Laxative Start: 09-06-2022 take 236 g by mouth once daily Golytely 236 GM as directed Orally once daily for 1 days Aug, Active Vitamin (4 sources) Vitamin Active Umeclidinium (9 sources) Anticholinergic Start: 10-10-2022 take 62.5 ug [...] / HYDROcodone bitartrate 5 mg oral tablet (3 sources) Opioid Agonist Start: 06-21-2023 End: 08-06-2023 take 1 tablet by mouth every six hours Hydrocodone-Acetami nophen Discontinued 1 TAB PO Every 6 hours 10 June 21, 2023 August 06, 2023 11:57am Dulaglutide (Trulicity) 4.5 mg/0.5 mL Pen Injector (7 sources) Start: 08-20-2022 End: 08-06-2023 Dulaglutide (Trulicity) 4.5 mg/0.5 mL Pen Injector Discontinued 4.5 MG SUBCUT every week August 20, 2022 12:00am August 06, 2023 11:57am Start: 08-20-2022 Dulaglutide (T rulicity) 4.5 mg/0.5 mL Pen Injector Active 4.5 MG SUBCUT every week August 20, 2022 12:00am ibuprofen 800 mg oral tablet (7 sources) Nonsteroidal Anti-inflammatory Drug Start: 08-20-2022 End: [...] 08-12-2021 Resolved: 09-06-2021 Chronic E Codes: Fall (3 sources) Fall; Translations: [Unspecified fall, initial encounter] 06-21-2023 Episodic Essential hypertension (8 sources) Essential hypertension; Translations: [Essential (primary) hypertension] Onset: 08-12-2021 Resolved: 09-06-2021 Chronic Heart valve disorders (2 sources) Cardiac murmur, unspecified; Translations: [Cardiac murmur, unspecified] Onset: 06-22-2023 Episodic Nonspecific chest pain (2 sources) Chest pain, unspecified; Translations: [Chest pain, unspecified] Onset: 08-01-2023 Episodic Other connective tissue disease (1 source) Pain in right foot; Translations: [Pain in right foot] Onset: 06-12-2023 Episodic Other non-traumatic joint disorders (3 sources) Hip pain; Translations: [Pain in right hip] 06-21-2023 Episodic Other non-traumatic joint disorders (1 source) Pain in right hip; Translations: [Pain in right hip] Onset: 06-21-2023 Episodic Other non-traumatic joint disorders (1 source) Pain in left hip; Translations: [Pain in left hip] Onset: 06-21-2023 Episodic Other screening for suspected conditions (not mental disorders or infectious disease) (2 sources) Abnormal electrocardiogram [ECG] [EKG]; Translations: [Abnormal electrocardiogram (ECG) (EKG)] Onset: 06-22-2023 Episodic Otitis media and related conditions (1 source) Otitis media; Translations: [Otitis media, unspecified, unspecified ear] 08-06-2023 Episodic Residual codes; unclassified (2 sources) Obstructive sleep apnea syndrome; Translations: [Obstructive sleep apnea (adult) (pediatric)] Chronic Residual codes; unclassified (2 sources) Obstructive sleep apnea (adult) (pediatric) Chronic Residual codes; unclassified (1 source) Obstructive sleep apnea (adult)(pediatric); Translations: [Obstructive sleep apnea (adult) (pediatric)] Onset: 12-07-2022 Chronic Sprains and strains (7 sources) Sprain of knee; Translations: [Sprain of [...] Test Name Value Interpretation Reference Range Facility 36on 08-07-2023 [address] Delacruz's office. [facility] 36on 08-03-2023 36 Can you please revie w her stress echo that was performed at [facility] for surgery clearance? Thanks! [facility] Telephoneon 08-03-2023 Telephone [id number] Lisa Leblanc 1965 F Date Provider Department Center 08/03/2023 ENRIKE JOY Family History Problem Relation Age of Onset Diabetes Mother Diabetes Brother Family Status - Relation Status Age at Mother Brother [facility] 36on 07-03-2023 36 Spoke with Марина Delacruz's office and told her I would be ordering stress echo per Dr. Navarro to be done DEANNA at [facility]. I LM for patient making her aware. I also LM with [facility] [place] to see if they do dubutamine stress echoes there. [facility] Telephoneon 06-27-2023 Telephone [id number] Lisa Leblanc 1965 F Date Provider Department Center 06/27/2023 ENRIKE JOY Family History Problem Relation Age of Onset Diabetes Mother Diabetes Brother Family Status - Relation Status Age at Mother Brother [facility] Office Visiton 06-22-2023 Follow-up visit [id number] Lisa Leblanc 1965 F Date Provider Department Center 06/22/2023 CHANTELLE BRIZUELA Chelo Zoë Family History Problem Relation Age of Onset Diabetes Mother Diabetes Brother Family Status - Relation Status Age at Mother Brother Level of Service:47465 [place] OFFICE/OUTPATIENT NEW MODERATE MDM 45 MINUTES Normal [facility] XR pelvis 1-2Von 06-21-2023 XR pelvis 1-2V [facility] Main [address] [address] XRay Report Signed Patient: Lisa Leblanc MR#: [id number] : 1965 Acct:[id number] Age/Sex: 58 / F ADM Date: 06/21/23 [...] Wendy Benavides M.D.06/21/2023 12:03 PM Dictation Location: [place] [address] Transcribed By: [facility] 06/21/23 1203 Dictated By: Wendy Benavides MD 06/21/23 1202 Signed By: 06/21/23 1203 Normal [facility] XR pre/post mri xrayon 04-16 XR pre/post mri xray [facility] Main [address] [address] MRI Report Signed Patient: Lisa Leblanc MR#: [id number] : 1965 Acct:[id number] Age/Sex: 58 / F ADM Date: 04/17/23 Loc: MR Room: Type: [facility] Attending Dr: Antwan Delacruz DPM MS Copies to: Antwan Delacruz DPM MS Ordering Provider: Antwan Delacruz DPM, MS Date of Service: 04/17/23 MR/MR ankle RT wo con: PERONEAL TEAR, PTTD ([id number]) XR/XR pre/post mri xray: PERONEAL TEAR, PTTD [...] Silver Montoya M.D.04/17/2023 12:21 PM Dictation Location: [place] [address] Transcribed By: [facility] 04/17/23 1221 Dictated By: Silver Montoya DO 04/17/23 1148 Signed By: 04/17/23 1221 Normal [facility] MM screening mammo BI w/CADo n 10-21-2022 MM screening mammo BI w/CAD [facility] Main [place] [address] [place] [address] Mammography Report Signed Patient: Lisa Leblanc MR#: [id number] : 1965 Acct:[id number] Age/Sex: 57 / F ADM Date: 10/21/22 Loc: [place] [facility]: Tamika Puri ([facility]) ADRIANNE Copies to: Tamika Puri APRN MATA [...] Wendy Benavides M.D.10/21/2022 2:32 PM Dictation Location: [facility] Transcribed By: [facility] 10/21/22 1432 Dictated By: Wendy Benavides MD 10/21/22 1429 Signed By: 10/21/22 1432 Normal [facility] Capillary blood glucose arlin urement by glucometer (mass/volume)Ordered By: Zeferino Allen on 10-10-2022 Glucose [Mass/Vol] 114 mg/dL Normal [facility] Comment on above: Random Glucose Refer ence Range is dependent on time and content of last meal. Glucose of more than 200 mg/dL in a nonstressed, ambulatory subject supports the diagnosis of Diabetes Mellitus. Result Comment: Catherine om Glucose Reference Range is dependent on time and content of last meal. Glucose of more than 200 mg/dL in a nonstressed, ambulatory subject supports the diagnosis of Diabetes Mellitus. Performed By: #### G LULS #### Point of Care testing , Glucose Poct Glucometerson 0 10-10-2022 Commemt1 Glu2: Cleaned Meter Normal [facility] Comment on above: Result Comment: PERF ORMED BY: [place] [id number] PATHOLOGIST JOB ESTIMATOR AMIE BENJAMIN M.D. Performed By: #### G LULS #### Point of Care testing , No Panel InformationOrdered By: Imcait Allen on 10-10-2022 Bedside Glucose Comment Glu2: cleaned meter [facility] XR knee RT 4V*on 08-21-2022 XR knee RT 4V* [facility] Main [place] [id number] XRay Report Signed Patient: Lisa Leblanc MR#: [id number] : 1965 Acct:[id number] Age/Sex: 57 / F ADM Date: 08/20/22 Loc: ER Room: Type: [facility] Attending Dr: Copies to: Saul Esparza [...] Hua Michaud M.D.08/21/2022 10:52 AM Dictation Location: [place] [address] Transcribed By: [facility] 08/21/22 1052 Dictated By: Hua Michaud II, MD 08/21/22 1051 Signed By: 08/21/22 1052 Normal [facility] Vital Signs Date Time Vital Sign Value Performing Clinician Jefferson aceves 08-06-2023 12:01-0400 Body temperature 97.8 [degF] DO Maged Plank Work Phone: [facility] 08-06-2023 12:01-0400 Diastolic blood pressure 104 mm[Hg] DO Maged Plank Work Phone: [facility] 08-06-2023 12:01-0400 Heart rate 94 /min DO Maged Plank Work Phone: [facility] 08-06-2023 12:01-0400 Respiratory rate 22 /min DO Maged Plank Work Phone: [facility] 08-06-2023 12:01-0400 SaO2% (BldA) [Mass fraction] 99 % DO Maged Plank Work Phone: [facility] 08-06-2023 12:01-0400 Systolic blood pressure 191 mm[Hg] DO Maged Plank Work Phone: [facility] 08-06-2023 11:58-0400 Body height 168.91 cm DO Maged Plank Work Phone: [facility] 08-06-2023 11:58-0400 Body weight 144 kg DO Maged Plank Work Phone: [facility] 06-21-2023 11:28-0400 Body temperature 98.2 [degF] DO Maged Plank Work Phone: [facility] 06-21-2023 11:28-0400 Diastolic blood pressure 67 mm[Hg] DO Maged Plank Work Phone: [facility] 06-21-2023 11:28-0400 Heart rate 95 /min DO Maged Plank Work Phone: [facility] 06-21-2023 11:28-0400 Respiratory rate 19 /min DO Maged Plank Work Phone: [facility] 06-21-2023 11:28-0400 SaO2% (BldA) [Mass fraction] 99 % DO Maged Plank Work Phone: [facility] 06-21-2023 11:28-0400 Systolic blood pressure 141 mm[Hg] DO Maged Plank Work Phone: [facility] 06-21-2023 11:21-0400 Body height 165.1 cm DO Maged Plank Work Phone: [facility] 06-21-2023 11:21-0400 Body weight 138.34 kg DO Maged Plank Work Phone: [facility] 12-07-2022 13:00-0400 Body height Nicholas Luu Other [facility] Other 12-07-2022 13:00-0400 Body mass index (BMI) [Ratio] 46.76 kg/m2 Nicholas Luu Other [facility] Other 12-07-2022 13:00-0400 Body weight 127.46 kg Nicholas Luu Other [facility] Other 12-07-2022 13:00-0400 Diastolic blood pressure 87 mm[Hg] Nicholas Luu Other [facility] Other 12-07-2022 13:00-0400 SaO2% (BldA) [Mass fraction] 97 % Nicholas Luu Other [facility] Other 12-07-2022 13:00-0400 Systolic blood pressure 137 mm[Hg] Nicholas Luu Other [facility] Other 10-10-2022 10:40-0400 Diastolic blood pressure 66 mm[Hg] DO Saul Tupa Work Phone: [facility] 10-10-2022 10:40-0400 Heart rate 60 /min DO Saul Tupa Work Phone: [facility] 10-10-2022 10:40-0400 Respiratory rate 16 /min DO Saul Tupa Work Phone: [facility] 10-10-2022 10:40-0400 SaO2% (BldA) [Mass fraction] 96 % DO Saul Tupa Work Phone: [facility] 10-10-2022 10:40-0400 Systolic blood pressure 138 mm[Hg] DO Saul Tupa Work Phone: [facility] 10-10-2022 08:18-0400 Body height 165.1 cm DO Saul Tupa Work Phone: [facility] 10-10-2022 08:18-0400 Body temperature 97.6 [degF] DO Saul Tupa Work Phone: [facility] 10-10-2022 08:18-0400 Body weight 124.73 kg DO Saul Tupa Work Phone: [facility] 08-21-2022 00:11-0400 Diastolic blood pressure 82 mm[Hg] DO Saul Tupa Work Phone: [facility] 08-21-2022 00:11-0400 Heart rate 88 /min DO Saul Tupa Work Phone: [facility] 08-21-2022 00:11-0400 Respiratory rate 20 /min DO Saul Tupa Work Phone: [facility] 08-21-2022 00:11-0400 SaO2% (BldA) [Mass fraction] 99 % DO Saul Tupa Work Phone: [facility] 08-21-2022 00:11-0400 Systolic blood pressure 147 mm[Hg] DO Saul Tupa Work Phone: [facility] 08-20-2022 21:43-0400 Body height 165.1 cm DO Saul Esparza Work Phone: [facility] 08-20-2022 21:43-0400 Body temperature 98.6 [degF] DO Saul Esparza Work Phone: [facility] 08-20-2022 21:43-0400 Body weight 131.6 kg DO Saul Esparza Work Phone: [facility] 11-19-2021 11:30-0400 Body height Nicholas Luu Other [facility] Other 11-19-2021 11:30-0400 Body mass index (BMI) [Ratio] 45.26 kg/m2 Nicholas Luu Other [facility] Other 11-19-2021 11:30-0400 Body temperature 96.2 [degF] Nicholas Luu Other [facility] Other 11-19-2021 11:30-0400 Body weight 123.38 kg Nicholas Luu Other [facility] Other 11-19-2021 11:30-0400 Diastolic blood pressure 82 mm[Hg] Nicholas Luu Other [facility] Other 11-19-2021 11:30-0400 SaO2% (BldA) [Mass fraction] 99 % Nicholas Luu Other [facility] Other 11-19-2021 11:30-0400 Systolic blood pressure 123 mm[Hg] Nicholas Luu Other [facility] Other 08-12-2021 11:45-0400 Body height Virgilio Carrera Other [facility] Other 08-12-2021 11:45-0400 Body mass index (BMI) [Ratio] 46.06 kg/m2 Virgilio Carrera Other [facility] Other 08-12-2021 11:45-0400 Body weight 125.56 kg Virgilio Carrera Other [facility] Other 08-12-2021 11:45-0400 Diastolic blood pressure 82 mm[Hg] Virgilio Carrera Other [facility] Other 08-12-2021 11:45-0400 Respiratory rate 18 /min Virgilio Carrera Other [facility] Other 08-12-2021 11:45-0400 SaO2% (BldA) [Mass fraction] 98 % Virgilio Carrera Other [facility] Other 08-12-2021 11:45-0400 Systolic blood pressure 122 mm[Hg] Virgilio Carrera Other [facility] Other Encounters Encounter Date Encounter Type Care Provider Facility Start: 08-06-2023 End: 08-06-2023 Emergency department patient visit DO Maged Ray Work Phone: [facility] Work Phone: Start: 08-01-2023 End: 08-01-2023 ambulatory [facility] Start: 06-22-2023 End: 06-22-2023 ambulatory [facility] Start: 06-22-2023 End: 06-22-2023 Encounter for other preprocedural examination CHANTELLE NAVARRO [facility] Start: 06-21-2023 End: 06-21-2023 Emergency department patient visit DO Maged Plank Work Phone: [facility] Work Phone: Start: 06-12-2023 End: 06-12-2023 ambulatory DO Maged Plank Work Phone: [facility] Work Phone: Start: 06-12-2023 End: 06-12-2023 Discharged Recurring DO Maged Plank Work Phone: [facility] Start: 06-12-2023 Registered Recurring DO Timoth y Plank Work Phone: [facility] Start: 04-17-2023 End: 04-17-2023 Patient encounter procedure DO Maged Plank Work Phone: [facility] [place] Work Phone: Start: 04-17-2023 End: 04-17-2023 ambulatory Antwan Delacruz Facility:[facility] Start: 01-24-2023 End: 01-24-2023 ambulatory AVRIL RENDON Not Available Start: 12-07-2022 Office outpatient vi sit 10 minutes Nicholas Luu [facility] Start: 12-07-2022 End: 12-07-2022 Patient encounter procedure DO Maged Plank Work Phone: [facility] Work Phone: Start: 12-07-2022 End: 12-07-2022 ambulatory DO Maged Plank Work Phone: [facility] Work Phone: Start: 10-21-2022 End: 10-21-2022 Patient encounter procedure DO Saul Esparza Work Phone: [facility] Work Phone: Start: 10-21-2022 End: 10-21-2022 ambulatory DO Saul Esparza Work Phone: [facility] Work Phone: Start: 10-10-2022 End: 10-10-2022 Admission to same day surgery center DO Saul Esparza Work Phone: [facility] Work Phone: Start: 10-10-2022 End: 10-10-2022 ambulatory DO Saul Esparza Work Phone: [facility] Work Phone: Start: 08-20-2022 End: 08-21-2022 Emergency department patient visit DO Saul Esparza Work Phone: [facility] Work Phone: Start: 03-16-2022 End: 03-16-2022 ambulatory DO Maged Plank Work Phone: [facility] Work Phone: Start: 03-16-2022 End: 03-16-2022 Patient encounter procedure DO Maged Plank Work Phone: [facility] Work Phone: Start: 01-12-2022 End: 01-12-2022 ambulatory DO Maged Plank Work Phone: [facility] Work Phone: Start: 01-12-2022 End: 01-12-2022 Patient encounter procedure DO Maged Plank Work Phone: [facility] Start: 11-19-2021 End: 11-19-2021 ambulatory Nicholas Luu Other [facility] Other Start: 11-19-2021 Office outpatient ne w 30 minutes Nicholas Luu [facility] Start: 11-19-2021 End: 11-19-2021 Patient encounter procedure DO Maged Ray Work Phone: [facility] Start: 09-14-2021 End: 09-14-2021 Patient encounter procedure ADRIANNE Puri ([facility]) Work Phone: [facility] Start: 09-06-2021 End: 09-06-2021 ambulatory Virgilio Carrera Other [facility] Other Start: 09-06-2021 Telephone encounter [facility] [place] Start: 08-12-2021 End: 08-12-2021 ambulatory Virgilio Carrera Other [facility] Other Start: 08-12-2021 Office outpatient ne w 30 minutes Virgilio Carrera [facility] [place] Procedures Date Procedure Procedure Detail Performing Clinician Start: 06-21-2023 Pelvis X-ray DO Maged Ray Work Phone: Start: 04-17-2023 XR pre/post mri xray DO Maged Ray Work Phone: Start: 04-17-2023 MRI of right ankle DO T imnayeli Ray Work Phone: Start: 10-21-2022 Screening mammograph y of bilateral breasts DO Saul Tupa Work Phone: Start: 10-10-2022 Screening colonoscopy D O Saul Tupa Work Phone: Start: 08-20-2022 X-ray of right knee DO Saul Tupa Work Phone: Start: 09-14-2021 Screening mammograph y of bilateral breasts ADRIANNE Puri ([facility]) Work Phone: Plan of Treatment Date Care Activity Detail Author Start: 10-10-2022 [facility] Start: 08-20-2022 X-ray of right knee XR knee RT 4V* F [facility] Start: 08-20-2022 XR Knee - right 4 Views [facility] Patient Education [facility] Work Phone: Patient referral [facility] Work Phone: Payers Date Payer Category Payer Medicare [id number] 2022 Medicare [id number] 2.1 [id number] 2022 Self-pay [id number] 2021 Medicaid [id number] 1965 Unknown [id number] Medicare [id number] b Medicare [place] [employer] Dual [id number] b Unknown [id number] Unknown [id number] Unknown [id number] Unknown [id number] Unknown [id number] Unknown [id number] Unknown [id number] Unknown [id number] Social History Date Type Detail Facility Sex Assigned At [facility] Other Start: 1965 Sex Assigned At Female [facility] Start: 08-20-2022 End: 08-06-2023 Tobacco smoking status NHIS Never smoked tobacco (finding) [facility] NEGATED: Highlighted row [facility] Goals Date Patient Goal Desired Activity /State Clinical Notes 03-06-2021 to 06-28-2023 Note Date & Type Note Facility 06-28-2023 Note Patient was here for her procedure the other day and anesthesia would not do it. They are aware you cleared her for surgery, but they are requesting she have a nuclear stress test before they will proceed. Is it ok if I order a lexiscan stress test for her? Or is there something else you'd like? Please advise. Thank you. [facility] 06-22-2023 Note [facility] Note Reason for cardiology consult: Cardiac clearance for right ankle surgery due to abnormal EKG Chief Complaint: No cardiac complaints HPI: Lisa Leblanc is a 58 y.o. female without prior [...] ALBUMIN , PROT (more content not included)... [facility] 06-22-2023 Note New patient here to establish [...] All other systems reviewed and are negative. [facility] 12-07-2022 Evaluation note Encounter Date Diagnosis Assessment Notes Nov, Obstructive sleep apnea (ICD-10 - G47.33) [facility] Encounter Date Diagnosis Assessment Notes Treatment Notes Treatment Clinical Notes Nov, Obstructive sleep apnea (ICD-10 - G47.33) [facility] 07-25-2022 Evaluation note* Encounter Date Diagnosis Assessment Notes Treatment Notes Treatment Clinical Notes Aug, Mixed hyperlipidemia (ICD-10 - E78.2) Aug, Primary hypertension (ICD-10 - I10) [facility] 06-30-2022 Evaluation note* Encounter Date Diagnosis [...] will be difficult for her to pay [id number]. 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 [facility] 01-22-2022 History general Narrative - Reported* Type Description Date Surgical History knee surgery-bilateral Surgical History C section Surgical History finger surgery 03/06 Hospitalization History see above [facility] Other Evaluation noteNo assessment information available [facility] Work Phone: History and physical note Author Zeferino Allen [facility] October 10, 2022 9:46am Note Date/Time October 10, 2022 9: 46am [facility] [address] [place] [address] Gastroenterology H&P Signed Patient: Lisa Leblanc MR#: [id number] : 1965 Acct:[id number] Age/Sex: 57 / F Adm Date: 3 Loc: Room: Type: [facility] Attending Dr: Zeferino Allen MD Copies to: MD Maged Walker,~ Date of Service: 10/10/2022 HISTORY & PHYSICAL: [...] Allen M.D. Documented By: Zeferino Allen MD 10/10/2245 Signed By: <Electronically signed by Zeferino Allen MD> 10/10/22 09 [facility] Work Phone: History general Narrative - Reported* Type Description Date Surgical History knee surgery-bilateral Surgical History C section Surgical History finger surgery 03/06 Hospitalization History see above [facility] Other Hospital Discharge instructions Additional Instructions DISCHARGE [...] years. -Follow up with PCP. -Office number [phone]. [facility] Work Phone: Hospital Discharge instructions Additional Instructions Ice to sore areas May take [id number] medicine for mild pain [place] for severe pain take 1 hydrocodone every 6 hours Follow-up with your family doctor for recheck Return to the [facility] ER for more severe pain additional injuries or any other concerns[facility] Work Phone: Chief Complaint and Reason [...] pttd V gait and rt ankle Fall Chief Complaint V gait and rt ankle Fall Chief Complaint V gait and rt ankle Fall ear pain Advance Directives No Advanced Directives Records Found Advance Directive Response Recorded Date/ Time Advance Directives No September 13, 3:53pm Advance Directive Response Recorded Date/ Time [...] Status: Inactive Member Role Status Mehreen Puri ([facility]) ADRIANNE Attending Provider Active Maged Ray , DO Primary Care Provider Active Team Status: Active Member Role Status Mehreen Ray , DO Primary Care Provider Active Team Status: Inactive Member Role Status Mehreen Ray , DO Primary Care Provider Active Nicholas Luu MD Attending Provider Active Team Status: Inactive Member Role Status Mehreen Luu MD Attending Provider Active Maged Ray , DO Primary Care Provider Active Team Status: Inactive Member Role Status Dates Saul Esparza DO Emergency Provider Active Maged Ray , DO Primary Care Provider Active Team Status: Inactive Member Role Status Dates Maged Ray , DO Primary Care Provider Active Zeferino Allen MD Attending Provider Active Team Status: Inactive Member Role Status Dates Maged Ray , DO Primary Care Provider Active Tamika Puri ([facility]) ADRIANNE Attending Provider Active Team Status: Inactive Member Role Status Dates Maged Ray DO Primary Care Provider Active Start: April 17, 2023 End: April 17, 2023 Antwan Delacruz DPM MS Attending Provider Active Start: April 17, 2023 End: April 17, 2023 Team Status: Active Member Role Status Dates Maged Ray DO Primary Care Provider Active Start: June 12, 2023 Antawn Delacruz DPM MS Attending Provider Active Start: June 12, 2023 Team Status: Inactive Member Role Status Dates [facility] Active Start: June 21, 2023 End: June 21, 2023 Maged DO Cory Primary Care Provider Active Start: June 21, 2023 End: June 21, 2023 Team Status: Inactive Member Role Status Dates Maged DO Cory Primary Care Provider Active Start: June 12, 2023 End: June 12, 2023 Antwan Delacruz DPM MS Attending Provider Active Start: June 12, 2023 End: June 12, 2023 Team Status: Inactive Member Role Status Dates Maged Ray DO Primary Care Provider Active Start: August 06, 2023 End: August 06, 2023 Maged Barger APRN Emergency Provider Active Start: August 06, 2023 End: August 06, 2023 Goals (unrecognized section and content) Goals may be documented in a n alternate section INFORMATION SOURCE (unrecogn ized section and content) DATE CREATED AUTHOR 01/26/2023 [facility] DATE CREATED AUTHOR AUTHOR'S ORGANIZ ATION 08/06/2023 [facility] DATE CREATED AUTHOR AUTHOR'S ORGANIZ ATION 08/08/2023 [facility] FOR RECORDS PERTAINING TO PATIENTS WHO ARE [...] BE BASED ON THE PRIMARY CLINICAL RECORDS. [facility] [employer] provides no warranty or guarantee of the accuracy or completeness of information in this document.
[2023-08-10 07:57] LABS: Basophils Percent Auto 0.4 % (0.2-2.0); Eosinophils Absolute Auto 0.2 10^3/uL (0.0-0.7); Eosinophils Percent Auto 2.1 % (0.9-7.0); Hematocrit 35.1 % (36.0-48.0); Hemoglobin 10.6 g/dL (12.0-16.0); Immature Granulocytes Abs Auto 0.03 10^3/uL (0.00-0.03); Immature Granulocytes Pct Auto 0.3 % (0.0-0.5); Lymphocytes Absolute Auto 2.1 10^3/uL (1.2-3.8); Lymphocytes Percent Auto 20.1 % (20.5-60.0); Mean Corpuscular HGB Conc 30.2 g/dL (29.9-35.2); Mean Corpuscular Hemoglobin 22.7 pg (26.7-34.0); Mean Corpuscular Volume 75.2 fL (81.0-99.0); Mean Platelet Volume 11.2 fL (9.5-13.5); Monocytes Absolute Auto 0.4 10^3/uL (0.3-0.8); Monocytes Percent Auto 4.2 % (1.7-12.0); Neutrophils Absolute Auto 7.5 10^3/uL (1.4-6.5); Neutrophils Percent Auto 72.9 % (43.0-75.0); Platelet Count 330 10^3/uL (150-450); Red Blood Count 4.67 10^6/uL (4.20-5.40); Red Cell Distribution Width 17.2 % (11.0-15.0); White Blood Count 10.3 10^3/uL (4.0-11.0)
[2023-08-10] MEDS: LACTATED RINGER'S SOLUTION 1,000 ML 50 ML IV (08:21)
--- NOTE | 2023-08-10 11:47 | PM.ORONB ---
Brief Operative Note Date of procedure: 08/10/23 Pre-op diagnosis general: Right ankle impingement, possible instability Post-op diagnosis: other (Right ankle impingement) Procedure: Procedure performed: Right ankle arthroscopy, stress examination under intraoperative fluoroscopy Indications for procedure: Patient is a 58-year-old female with type 2 diabetes who has had pain and dysfunction associated with the right ankle for greater than 1 year. She presents to my office for second opinion and related to pain around the anterior and anterior lateral ankle and feeling as if the ankle would give way. She had attempted physical therapy and ASO ankle bracing without help. MRI was obtained which demonstrated intact anterior talofibular ligament and intact peroneal tendons however with a small amount of fluid near the fibular groove. There is no osteochondral defect. Given her lack of improvement I recommended ankle arthroscopy with stress examination to ensure the lateral ankle ligaments are functioning properly. She agreed and desired to undergo operative intervention. She did require an extensive cardiac workup and has been cleared by cardiology to undergo the above procedures Intraoperative findings: Intraoperative stress examination of bilateral ankles showed stable talar tilt, stable anterior drawer and stable syndesmosis. Arthroscopy revealed chronic impingement tissue without osteochondral defect. Procedure in detail: Patient was identified in preoperative holding by myself which time correct side and site were marked and consent was obtained. Regional anesthesia was performed by the anesthesia team. Preoperative antibiotics were started and the patient was brought back to the operating theater placed on table in supine position. General anesthesia was administered and formal timeout was performed. Then under live fluoroscopy both ankles were stressed in varus, valgus and anterior drawer as well as the syndesmosis. Bilateral ankles were stable in all planes. The right lower extremity was then prepped and draped in usual sterile fashion with a thigh tourniquet. Formal timeout was performed again and the right lower extremity was exsanguinated and tourniquet was inflated. 1 cm incision was made over the anterior lateral ankle just medial to the tibialis anterior tendon and then blunt dissection was taken down to the ankle joint capsule. A trocar and cannula were then used to harding the capsule and enter the ankle joint. The trocar was removed and replaced by 2.7 mm arthroscope. Then a standard anterior lateral portal was created in a similar fashion. A 3.5 mm aggressive shaver was placed into the anterior lateral portal and was used to excise all chronic synovitic tissue. There is no evidence of osteochondral defect in the tibiotalar joint. In the ankle had normal appearing range of motion once all impingement tissue was removed. Arthroscopic instrumentation was then removed and the portals were closed with skin suture. Postoperative Plan: Discharge home under family's care Weightbearing as tolerated in cam boot Change dressing daily may wash incisions with soap and water, no ointment or solutions Prescription sent to pharmacy Follow-up in 1 week Anesthesia: regional and General-LMA Surgeon: Antwan Delacruz Maintenance Data Analyst: Sae Robert Estimated blood loss (mL): 10 Pathology: none sent Condition: stable Disposition: PACU
[2023-08-10] MEDS: CEFAZOLIN SODIUM 3,000 MG in 0.9 % SODIUM CHLORIDE 100 ML 200 MG IV (12:01)
[2023-08-10] MEDS: BETAMETHASONE ACE/BETAMETHASONE SOD PHOS 30 MG/5 ML INJ (13:26)
[2023-08-10 14:01] LABS: Glucometer 102 mg/dL (74-106)
--- NOTE | 2023-08-10 15:00 | PC.NURSE ---
1148- Final timeout completed. Patient placed on left side. O2 applied via nc at 2l/min. Right leg draped in sterile technique. Patient placed on monitor. 1150- Right leg landmarked with Ultrasound. 1154- Right popliteal initiated. 1158- Popliteal block completed. Patient tolerated it well. Right foot is warm with prompt cap refill. See posted vital signs.
--- NOTE | 2023-08-10 15:06 | PC.NURSE ---
Assisted to BSC; already incontinent; did not void any more; assisted to chair
== END 2023-08-10 14:57 | disposition home or self-care (01) ==
PROVIDERS: Visit Provider Podiatrist Foot & Ankle Surgery
PROC: (CPT 29898; principal; 2023-08-10 09:50)
DX: M25.871 Other specified joint disorders, right ankle and foot (principal); E11.9 Type 2 diabetes mellitus without complications; E66.01 Morbid (severe) obesity due to excess calories; Z68.43 Body mass index [BMI] 50.0-59.9, adult; M25.371 Other instability, right ankle; Z79.84 Long term (current) use of oral hypoglycemic drugs; G47.33 Obstructive sleep apnea (adult) (pediatric); J45.909 Unspecified asthma, uncomplicated; E78.5 Hyperlipidemia, unspecified; I10 Essential (primary) hypertension; K21.9 Gastro-esophageal reflux disease without esophagitis; Z90.710 Acquired absence of both cervix and uterus
CPT/HCPCS: 29898; 36415; 64445; 76000; 82948; 85025; J0690; J0702

== ENCOUNTER 2024-04-26 07:15 | Outpatient (RCR) | payer MEDICARE, MEDICAID, SELFPAY ==
--- NOTE | 2024-04-10 14:48 | CR1_ITS ---
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
--- NOTE | 2024-04-16 12:29 | CR1_ITS ---
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
== END 2024-04-26 09:21 | disposition home or self-care (01) ==
LOC: CR 07:15
PROVIDERS: Visit Provider Nurse Practitioner
DX: I25.10 Atherosclerotic heart disease of native coronary artery without angina pectoris (principal)
CPT/HCPCS: 93798